=== PATIENT | female | born 1945 | race Caucasian/White ===

== ENCOUNTER 2017-09-01 23:19 | Emergency (ER) | payer BC ==
--- OUTSIDE RECORDS SUMMARY | 2017-09-01 23:33 | XMS REPORT ---
:1945 External Reference #:[id number] Author Organization [email or web address] Address [address] [address] Phone [phone] Care Team Providers Name Role Phone Saundra Bautista NP Care Team Information Operator Automated Process Unavailable Karoline Hammond MD Primary Care Physician Unavailable Payers Type Date Identification Numbers Payment Provider Subscriber Commercial Policy Number: [id number] BS [employer]ets Karina Maloney PayID: [id number] [address] [address] [place] [address] Medigap Part B Expires: 2016 Policy Number: [facility] Pphaven Maloney [id number] PayID: [id number] [address] [address] [place] [address] Medigap Part B Expires: 2013 Policy Number: [id number] BS Chrissy Maloney Group Name: Ppo [address] [address] PayID: [id number] [place] [address] Medigap Part B Effective: 2013 Policy Number: BS Chrissy Maloney [id number] Expires: 2016 PayID: [id number] [address] [address] [place] [address] Problems Date Description Provider Status Onset: 03/19/2015 Essential hypertension Saundra Bautista, N.Galo Active Onset: 06/02/2010 Migraine Karoline Hammond M.D. Active Onset: 06/02/2010 Hypothyroidism Karoline Hammond M.D. Active Onset: 12/09/2011 Hyperlipidemia Saundra Bautista N.Galo Active Onset: 12/08/2015 Degeneration of lumbar intervertebral Hemanth Dorantes M.D. 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 Works at [employer] Cigarette Use Never Smoked Cigarettes ETOH Use Currently consumes alcohol less than one per week ETOH Use Occasionally consumes alcohol Smoking Patient has never smoked Recreational Drug Use Denies Drug Use Exercise Type/Frequency Does not exercise Allergies, Adverse Reactions, Alerts Date Description Reaction Status Severity Comments 12/22/2009 No Known Drug Allergy active 03/19/2015 Certain Detergents active Medications Medication Date Status Form Strength Qnty SIG Indications Ordering Provider Losartan Potassium 07/26 Active Tablets 100mg 90tab 1 by mouth I10 s every day Varn, N.P. Trazodone HCL 04/04 Active Tablets 50mg 30tab Take One s Tablet By Varn, N.P. Mouth At Bedtime as Needed Voltaren 04/29 Active Gel 1% 300un Apply its [employer]ams [employer], SENIOR SALES COMPENSATION ANALYST Gel Two Times A Day To The Affected Area For 7 Days Amlodipine 03/23 Active Tablets 5mg 60tab Take One Karoline Besylate s Tablet By Cotton, Mouth M.D. Twice A Day Gabapentin 03/19 Active Capsules 100mg 90cap 1 by mouth Z48.89 s three Jose E, times a M.D. day Tramadol HCL 03/05 Active Tablets 50mg 90tab 1 tablet s three to Varn, N.P. four times daily as needed Cyclobenzaprine 11/09 Active Tablets 5mg 30tab Take One Saundra HCL s Tablet By Varn, N.P. Mouth At Bedtime as Needed For Back Pain Meloxicam 06/30 Active Tablets 7.5mg 60tab Take One M46.1 Saundra /2016 s Tablet By Varn, N.P. Mouth Twice A Day as Needed Atorvastatin 05/07 Active Tablets 20mg 30tab Take One E78.5 Saundra Calcium s Tablet By Varn, N.P. Mouth At Bedtime Levothyroxine 11/06 Active Tablets 75mcg 30tab Take One Saundra Sodium s Tablet By Varn, N.P. Mouth Every Day. Probiotic Active Capsules 1 by mouth Unknown Acidophilus qhs Vitamin C Active 1 po qd Unknown Vitamin D Active Tablets 1000Unit 2 tab each Unknown (Cholecalciferol) day by mouth Vicodin 03/16 Hx Tablets 5-300mg 20tab take 1 by s mouth Varn, N.P. - every 6 07/26 hours needed Tramadol HCL 11/09 Hx Tablets 50mg 90tab 1 tablet s three to Varn, N.P. - four times 03/05 daily needed Vitamin D3 10/06 Hx Capsules [id number] 8caps one by mouth once Varn, N.P. - weekly 12/05 Cheratussin ac 05/14 Hx Syrup 100-10mg/ 120ml 2 J20.9 5ML teaspoons Varn, N.P. - by mouth 06/30 every hours as needed Azithromycin 05/14 Hx Tablets 250mg 6tabs two tabs J20.9 day one, Varn, N.P. - one daily 05/24 till Cephalexin 04/15 Hx Tablets 500mg 21tab one three L04.0 s times Varn, N.P. - daily for 04/22 7 Robituss ac 07/16 Hx Liquid 120cc 1 - 2 tsp 465.9 q 4 hrs Varn, N.P. - prn cough 08/30 Azithromycin 07/16 Hx Tablets 250mg 6tabs two tabs 465.9 day one, Varn, N.P. - one daily 07/22 till Vicodin 07/11 Hx Tablets 5-300mg 20tab take 1 po 922.1 s bid prn Varn, N.P. - pain 07/15 Metaxalone 06/21 Hx Tablets 800mg 30tab take 1 724.5 s tablet 3 Varn, N.P. - times a 05/07 day needed Losartan Potassium 06/21 Hx Tablets 100mg 30tab Take One s Tablet By Varn, N.P. - Mouth 07/26 ( not taking ) Losartan Potassium 11/07 Hx Tablets 50mg 30tab Take One s Tablet By Varn, N.P. - Mouth 06/21 Ramipril 05/12 Hx Capsules 5mg 30cap 1 po qd 401.1 s Varn, N.P. - 11/07 Metaxalone 01/06 Hx Tablets 800mg 30tab take 1 724.5 s tablet 3 Varn, N.P. - times a 01/16 day needed Hydrocodone/Acetam 01/06 Hx Tablets 5-325mg 30tab 1 tablet 724.5 s every 4 - Varn, N.P. - 6 hours as 12/01 needed for pain Hydrochlorothiazid 12/26 Hx Tablets 25mg 90tab 1 po qd 401.1 Saundra s Varn, N.P. - 06/15 Zithromax Z-Diego 08/19 Hx Tablets 250mg 1Pack two po initially Cotton, - then one M.D. 08/29 po daily Robitussin ac 08/19 Hx Solution 120cc 1 to 2 tsp every 4 Cotton, - hours as M.D. 08/29 needed for cough Cipro 06/02 Hx Tablets 250mg 10tab 1 tablet 599.0 s bid for 5 Cotton, - days M.D. 06/08 Vicodin 04/01 Hx Tablets 5-500mg 30tab 1-2 by Luisa s mouth Lucille, - every 4-6 M.D., FACP 08/19 hours and needed for pain Flexeril 04/01 Hx Tablets 5mg 30tab 1 tablet Liusa s three Lucille, - times a M.D., FACP 06/02 day needed Verapamil HCL 09/07 Hx Tablets 40mg 1 Tablet Daily Rossy Hammond M.D. 04/01 Imitrex 09/07 Hx Kit 6mg 1 Injection - Onset Of 11/13 Headache, epeat 1/2 Hour Later If Needed Levothyroxine 09/07 Hx Tablets 75mcg 90tab 1 by mouth s once daily Rossy Hammond M.D. 11/06 Nabumetone 09/07 Hx Tablets 500mg 90tab Take 2 To s 3 Tablets Varn, N.P. - By Mouth 06/30 Once Daily as Needed Dilaudid Hx Tablets 2mg 200ta 1 Every 6 Other /0000 bs Hours as Ordering - Needed For Provider 12/01 Headache If Imitrex Does Not Work Acetaminophen Hx Capsules 500mg Unknown /0000 - 05/07 Coq-10 Hx Capsules 200mg 1 po qd Unknown /0000 - 06/30 Acetaminophen Hx Tablets 500mg 2 tablets Unknown /0000 by mouth - every 6 07/18 hours needed for pain/fever Oxycodone-Acetamin Hx Tablets 5-325mg 1 po tid Unknown ophen /0000 prn - 04/21 Diazepam Hx Tablets 2mg 1 po hs Unknown /0000 prn - 04/21 Neurontin Hx Capsules 300mg 1 in am Unknown /0000 and 2 in - pm 12/07 Lyrica 00 Hx Capsules 75mg 2 hs Unknown /0000 - 03/05 Medications Administered in Office Medication Date Status Form Strength Qnty SIG Indications Ordering Provider Inj, Administered Injection Jose S. Regadenoson, 015 DO Artie 0.1 MG FACC Inj, Administered Injection Qutaybeh S. Regadenoson, 015 Maghaydah, 0.1 MG M.D. Technetium TC Administered Injection Jose S. 99M 015 Alva, DO Tetrofosmin, FACC Per Unit Dose Up To 40 Millicuries Technetium TC Administered Injection Qutaybeh S. 99M 015 Maghaydah, Tetrofosmin, M.D. Per Unit Dose Up To 40 Millicuries Technetium TC Administered Injection Qutaybeh S. 99M 015 Maghaydah, Tetrofosmin, M.D. Per Unit Dose Up To 40 Millicuries Immunizations CPT Code Status Date Vaccine Lot # [id number] Given 02/19/2015 Influenza Virus Vaccine, Quadrivalent, Split, Preservative Free 95298 Given 05/07/2014 Pneumococcal Conjugate Vaccine 13 Valent For [id number] Intramuscular Use 45977 Given 12/01/2012 Pneumonia Vaccine [id number] 23001 Given 11/19/2011 Zoster (Zostavax) [id number] 32352 Given 02/16/2010 Influenza Virus 3Yrs & Over 54068 Given 04/10/2009 Influenza Virus Vaccine, Pandemic Formulation 38335 Given 04/10/2009 Administration Swine Flu Shot 71572 Given 01/30/2009 Flu Vac (History By Patient> 79075 Given 02/23/2008 Influenza Virus 3Yrs & Over Vital Signs Date Vital Result Comment 08/23/2017 Weight 111.00 lb Heart Rate 72 /min BP Systolic 130 mmHg BP Diastolic 66 mmHg Body Temperature 98.2 F O2 % BldC Oximetry 97 % 07/26/2017 Weight 111.00 lb Heart Rate 90 /min BP Systolic 160 mmHg BP Diastolic 76 mmHg Body Temperature 98.7 F O2 % BldC Oximetry 97 % 12/01/2016 Weight 117.25 lb Heart Rate 75 /min BP Systolic 138 mmHg BP Diastolic 70 mmHg Body Temperature 98.0 F O2 % BldC Oximetry 95 % 11/04/2016 Height 60 inches Weight 115.75 lb Heart Rate 86 /min BP Systolic 150 mmHg BP Diastolic 80 mmHg Body Temperature 97.1 F O2 % BldC Oximetry 98 % BMI (Body Mass Index) 22.6 kg/m2 05/03/2016 Height 59.5 inches 4'11.50" Weight 131.00 lb BP Systolic Sitting 140 mmHg BP Diastolic Sitting 80 mmHg Pain Level 1 BMI (Body Mass Index) 26.0 kg/m2 04/29/2016 Height 59.5 inches 4'11.50" Weight 131.00 lb Heart Rate 85 /min BP Systolic 128 mmHg BP Diastolic 70 mmHg Body Temperature 98.8 F O2 % BldC Oximetry 98 % BMI (Body Mass Index) 26.0 kg/m2 04/09/2016 Weight 132.00 lb with shoes Heart Rate 90 /min BP Systolic Sitting 152 mmHg BP Diastolic Sitting 94 mmHg O2 % BldC Oximetry 98 % 04/05/2016 Height 59.5 inches 4'11.50" Weight 136.00 lb Heart Rate 82 /min BP Systolic Sitting 150 mmHg BP Diastolic Sitting 90 mmHg Pain Level 2 BMI (Body Mass Index) 27.0 kg/m2 03/19/2016 Height 59.5 inches 4'11.50" Weight 136.00 lb Heart Rate 98 /min BP Systolic Sitting 220 mmHg BP Diastolic Sitting 100 mmHg Pain Level 6 BMI (Body Mass Index) 27.0 kg/m2 03/05/2016 Weight 136.00 lb Heart Rate 82 /min BP Systolic Sitting 152 mmHg BP Diastolic Sitting 84 mmHg Respiratory Rate 15 /min Body Temperature 98.6 F O2 % BldC Oximetry 98 % 02/25/2016 Height 59.5 inches 4'11.50" Weight 139.00 lb Heart Rate 78 /min BP Systolic Sitting 130 mmHg BP Diastolic Sitting 80 mmHg Pain Level 1 BMI (Body Mass Index) 27.6 kg/m2 01/28/2016 Height 59.5 inches 4'11.50" Weight 139.00 lb Heart Rate 86 /min BP Systolic Sitting 138 mmHg BP Diastolic Sitting 88 mmHg Body Temperature 99.3 F Pain Level 1 BMI (Body Mass Index) 27.6 kg/m2 12/29/2015 Height 59.5 inches 4'11.50" Weight 139.00 lb Heart Rate 70 /min BP Systolic Sitting 124 mmHg BP Diastolic Sitting 70 mmHg Pain Level 3 BMI (Body Mass Index) 27.6 kg/m2 12/08/2015 Height 59.5 inches 4'11.50" Weight 139.00 lb Heart Rate 62 /min BP Systolic Sitting 130 mmHg BP Diastolic Sitting 80 mmHg Pain Level 1 BMI (Body Mass Index) 27.6 kg/m2 10/08/2015 Height 59.5 inches 4'11.50" Weight 141.00 lb Heart Rate 74 /min BP Systolic Sitting 126 mmHg BP Diastolic Sitting 66 mmHg Body Temperature 98.5 F O2 % BldC Oximetry 99 % BMI (Body Mass Index) 28.0 kg/m2 06/30/2015 Weight 146.00 lb Heart Rate 74 /min BP Systolic Sitting 142 mmHg BP Diastolic Sitting 88 mmHg Body Temperature 98.3 F Pain Level 10 R hip 05/14/2015 Weight 148.00 lb Heart Rate 89 /min BP Systolic Sitting 149 mmHg BP Diastolic Sitting 82 mmHg Body Temperature 99.0 F O2 % BldC Oximetry 98 % 04/15/2015 Height 61 inches 5'1" Weight 148.00 lb Heart Rate 76 /min BP Systolic Sitting 126 mmHg BP Diastolic Sitting 78 mmHg Respiratory Rate 14 /min Body Temperature 99.1 F O2 % BldC Oximetry 98 % BMI (Body Mass Index) 28.0 kg/m2 03/19/2015 Height 61 inches 5'1" Weight 145.50 lb Heart Rate 76 /min BP Systolic Sitting 152 mmHg BP Diastolic Sitting 80 mmHg BP Systolic Recheck 140 mmHg BP Diastolic Recheck 78 mmHg Respiratory Rate 15 /min Body Temperature 98.1 F Pain Level 4 O2 % BldC Oximetry 95 % BMI (Body Mass Index) 27.5 kg/m2 11/13/2014 Height 61 inches 5'1" Weight 146.00 lb Heart Rate 63 /min BP Systolic 125 mmHg BP Diastolic 73 mmHg Body Temperature 97.2 F BMI (Body Mass Index) 27.6 kg/m2 08/30/2014 Weight 147.00 lb Heart Rate 79 /min BP Systolic Sitting 154 mmHg BP Diastolic Sitting 74 mmHg Body Temperature 98.1 F 07/16/2014 Weight 147.00 lb Heart Rate 84 /min BP Systolic Sitting 140 mmHg BP Diastolic Sitting 80 mmHg Body Temperature 97.7 F O2 % BldC Oximetry 96 % 05/07/2014 Height 61 inches 5'1" Weight 146.00 lb Heart Rate 74 /min BP Systolic 118 mmHg BP Diastolic 64 mmHg Body Temperature 98.7 F BMI (Body Mass Index) 27.6 kg/m2 07/24/2013 Weight 150.00 lb Heart Rate 78 /min BP Systolic Sitting 126 mmHg BP Diastolic Sitting 84 mmHg Respiratory Rate 15 /min Body Temperature 97.6 F 07/11/2013 Weight 146.00 lb Heart Rate 78 /min BP Systolic Sitting 138 mmHg BP Diastolic Sitting 82 mmHg Respiratory Rate 16 /min 06/21/2013 Weight 146.50 lb Heart Rate 84 /min BP Systolic 160 mmHg BP Diastolic 94 mmHg 12/01/2012 Height 60.5 inches 5'0.50" Weight 144.00 lb Heart Rate 70 /min BP Systolic Sitting 130 mmHg BP Diastolic Sitting 80 mmHg BMI (Body Mass Index) 27.7 kg/m2 06/15/2012 Height 60 inches 5'0" Weight 148.50 lb Heart Rate 76 /min BP Systolic Sitting 132 mmHg BP Diastolic Sitting 78 mmHg BMI (Body Mass Index) 29.0 kg/m2 05/12/2012 Height 60 inches 5'0" Weight 147.00 lb Heart Rate 72 /min BP Systolic Sitting 128 mmHg BP Diastolic Sitting 74 mmHg BP Systolic Recheck 138 mmHg BP Diastolic Recheck 88 mmHg BMI (Body Mass Index) 28.7 kg/m2 01/07/2012 Height 60 inches 5'0" Weight 142.75 lb Heart Rate 76 /min BP Systolic Sitting 120 mmHg BP Diastolic Sitting 78 mmHg BMI (Body Mass Index) 27.9 kg/m2 12/27/2011 Height 60 inches 5'0" Weight 143.00 lb BP Systolic Sitting 128 mmHg BP Diastolic Sitting 80 mmHg BP Systolic Recheck 138 mmHg BP Diastolic Recheck 92 mmHg BMI (Body Mass Index) 27.9 kg/m2 11/19/2011 Height 60 inches 5'0" Weight 145.00 lb Heart Rate 68 /min BP Systolic Sitting 142 mmHg BP Diastolic Sitting 78 mmHg BMI (Body Mass Index) 28.3 kg/m2 11/06/2010 Height 60 inches 5'0" Weight 144.00 lb Heart Rate 75 /min BP Systolic Sitting 124 mmHg BP Diastolic Sitting 82 mmHg BMI (Body Mass Index) 28.1 kg/m2 08/19/2010 Heart Rate 76 /min BP Systolic 144 mmHg BP Diastolic 82 mmHg Body Temperature 98.3 F 06/02/2010 Weight 152.00 lb Heart Rate 60 /min BP Systolic 130 mmHg BP Diastolic 78 mmHg 04/01/2010 Heart Rate 72 /min BP Systolic 154 mmHg BP Diastolic 90 mmHg Body Temperature 98.4 F 12/22/2009 Weight 151.50 lb Heart Rate 64 /min BP Systolic 122 mmHg BP Diastolic 78 mmHg Results Test Date Test Result H/L Range Note Laboratory test 12/08/2016 Blood Urea Nitrogen 11 mg/dL 6-24 1 finding BUN Creatinine 12/08/2016 Creatinine 0.82 mg/dL 0.51-0.95 Egfr Non- 69.1 >60 Egfr 88.9 >60 2 Laboratory test finding 11/04/2016 TSH (Thyroid Stim Horm) 0.43 mcIU/mL 0.34-5.60 Lipid Profile 10/30/2016 Triglycerides 73 mg/dL 3 (Trig/Chol/HDL) Cholesterol 142 mg/dL 4 HDL Cholesterol 53.6 mg/dL 5 LDL Cholesterol 74 mg/dL 6 Comp Metabolic Panel 10/30/2016 Sodium 138 mmol/L 133-145 Potassium 4.2 mmol/L 3.5-5.0 Chloride 104 mmol/L 101-111 Co2 Carbon Dioxide 28 mmol/L 22-32 Anion Gap 6 mmol/L 2-11 Glucose 89 mg/dL 70-100 Blood Urea Nitrogen 12 mg/dL 6-24 Creatinine 0.71 mg/dL 0.51-0.95 BUN/Creatinine Ratio 16.9 8-20 Calcium 10.0 mg/dL 8.6-10.3 Total Protein 6.9 g/dL 6.4-8.9 Albumin 4.6 g/dL 3.2-5.2 Globulin 2.3 g/dL 2-4 Albumin/Globulin Ratio 2.0 1-3 Total Bilirubin 0.50 mg/dL 0.2-1.0 Alkaline Phosphatase 86 U/L 34-104 Alt 22 U/L 7-52 Ast 20 U/L 13-39 Egfr Non- 81.6 >60 Egfr 105.0 >60 7 Basic Metabolic Panel 01/13/2016 Sodium 141 mmol/L 133-145 Potassium 3.8 mmol/L 3.5-5.0 Chloride 106 mmol/L 101-111 Co2 Carbon Dioxide 30 mmol/L 22-32 Anion Gap 5 mmol/L 2-11 Glucose 86 mg/dL 70-100 Blood Urea Nitrogen 16 mg/dL 6-24 Creatinine 0.71 mg/dL 0.51-0.95 BUN/Creatinine Ratio 22.5 High 8-20 Calcium 9.5 mg/dL 8.6-10.3 Egfr Non- 81.9 >60 Egfr 105.3 >60 8 CBC No Diff 01/13/2016 White Blood Count 5.2 10^3/uL 3.5-10.8 Red Blood Count 4.45 10^6/uL 4.0-5.4 Hemoglobin 13.4 g/dL 12.0-16.0 Hematocrit 40 % 35-47 Mean Corpuscular Volume 90 fL 80-97 Mean Corpuscular Hemoglobin 30 pg 27-31 Mean Corpuscular HGB Conc 34 g/dL 31-36 Red Cell Distribution Width 12 % 10.5-15 Platelet Count 216 10^3/uL 150-450 Mean Platelet Volume 8 um3 7.4-10.4 Laboratory test finding 12/05/2015 Vitamin D Total 25(Oh) 44.7 ng/mL 30- 50 9 Creatinine 11/18/2015 Creatinine 0.78 mg/dL 0.51-0.95 Egfr Non- 73.4 >60 Egfr 94.5 >60 10 Laboratory test finding 11/18/2015 Blood Urea Nitrogen BUN 17 mg/dL 6-24 11 Comp Metabolic Panel 10/06/2015 Sodium 140 mmol/L 133-145 Potassium 4.1 mmol/L 3.5-5.0 Chloride 105 mmol/L 101-111 Co2 Carbon Dioxide 30 mmol/L 22-32 Anion Gap 5 mmol/L 2-11 Glucose 82 mg/dL 70-100 Blood Urea Nitrogen 22 mg/dL 6-24 Creatinine 0.75 mg/dL 0.51-0.95 BUN/Creatinine Ratio 29.3 High 8-20 Calcium 9.5 mg/dL 8.6-10.3 Total Protein 6.4 g/dL 6.4-8.9 Albumin 4.2 g/dL 3.2-5.2 Globulin 2.2 g/dL 2-4 Albumin/Globulin Ratio 1.9 1-3 Total Bilirubin 0.70 mg/dL 0.2-1.0 Alkaline Phosphatase 86 U/L 34-104 Alt 21 U/L 7-52 Ast 19 U/L 13-39 Egfr Non- 76.8 >60 Egfr 98.8 >60 12 Lipid Profile (Trig/Chol/HDL) 10/06/2015 Triglycerides 83 mg/dL 13 Cholesterol 148 mg/dL 14 HDL Cholesterol 58.0 mg/dL 15 LDL Cholesterol 73 mg/dL 16 Laboratory test finding 10/06/2015 TSH (Thyroid Stim Horm) 0.41 ?IU/mL 0.34-5.60 17 Vitamin D Total 25(Oh) 16.9 ng/mL Low 30-50 18 C Reactive Protein < 1.00 mg/L < 5.00 19 Comp Metabolic Panel 03/19/2015 Sodium 140 mmol/L 133-145 Potassium 3.7 mmol/L 3.5-5.0 Chloride 105 mmol/L 101-111 Co2 Carbon Dioxide 31 mmol/L 22-32 Anion Gap 4 mmol/L 2-11 Glucose 86 mg/dL 70-100 Blood Urea Nitrogen 12 mg/dL 6-24 Creatinine 0.69 mg/dL 0.51-0.95 BUN/Creatinine Ratio 17.4 8-20 Calcium 9.5 mg/dL 8.6-10.3 Total Protein 6.4 g/dL 6.4-8.9 Albumin 4.2 g/dL 3.2-5.2 Globulin 2.2 g/dL 2-4 Albumin/Globulin Ratio 1.9 1-3 Total Bilirubin 0.60 mg/dL 0.2-1.0 Alkaline Phosphatase 87 U/L 34-104 Alt 27 U/L 7-52 Ast 23 U/L 13-39 Egfr Non- 84.6 >60 Egfr 108.8 >60 20 CBC Auto Diff 03/19/2015 White Blood Count 5.0 10^3/uL 4.8-10.8 Red Blood Count 4.42 10^6/uL 4.0-5.4 Hemoglobin 13.5 g/dL 12.0-16.0 Hematocrit 42 % 35-47 Mean Corpuscular Volume 95 fL 80-97 Mean Corpuscular Hemoglobin 31 pg 27-31 Mean Corpuscular HGB Conc 32 g/dL 31-36 Red Cell Distribution Width 13 % 10.5-15 Platelet Count 260 10^3/uL 150-450 Mean Platelet Volume 7 um3 Low 7.4-10.4 Abs Neutrophils 2.7 10^3/uL 1.5-7.7 Abs Lymphocytes 1.6 10^3/uL 1.0-4.8 Abs Monocytes 0.4 10^3/uL 0-0.8 Abs Eosinophils 0.1 10^3/uL 0-0.6 Abs Basophils 0.1 10^3/uL 0-0.2 Abs Nucleated RBC 0 10^3/uL Granulocyte % 54.8 % 38-83 Lymphocyte % 32.5 % 25-47 Monocyte % 8.5 % 1-9 Eosinophil % 3.0 % 0-6 Basophil % 1.2 % 0-2 Nucleated Red Blood Cells % 0.1 Liver Function Panel 07/09/2014 Total Protein 6.9 g/dL 6.4-8.9 Albumin 4.4 g/dL 3.2-5.2 Globulin 2.5 g/dL 2-4 Albumin/Globulin Ratio 1.8 1-3 Total Bilirubin 0.60 mg/dL 0.2-1.0 Direct Bilirubin 0.10 mg/dL 0.03-0.18 Indirect Bilirubin 0.5 mg/dL 0.3-1.0 Alkaline Phosphatase 79 U/L 34-104 Alt 23 U/L 7-52 Ast 20 U/L 13-39 Lipid Profile (Trig/Chol/HDL) 07/09/2014 Triglycerides 84 mg/dL 21 Cholesterol 154 mg/dL 22 HDL Cholesterol 58.6 mg/dL 23 LDL Cholesterol 79 mg/dL 24 Comp Metabolic Panel 05/01/2014 Sodium 139 mmol/L 133-145 Potassium 4.2 mmol/L 3.5-5.0 Chloride 104 mmol/L 101-111 Co2 Carbon Dioxide 30 mmol/L 22-32 Anion Gap 5 mmol/L 2-11 Glucose 82 mg/dL 70-100 Blood Urea Nitrogen 20 mg/dL 6-24 Creatinine 0.83 mg/dL 0.51-0.95 BUN/Creatinine Ratio 24.1 High 8-20 Calcium 9.6 mg/dL 8.6-10.3 Total Protein 6.7 g/dL 6.4-8.9 Albumin 4.1 g/dL 3.2-5.2 Globulin 2.6 g/dL 2-4 Albumin/Globulin Ratio 1.6 1-3 Total Bilirubin 0.50 mg/dL 0.2-1.0 Alkaline Phosphatase 104 U/L 34-104 Alt 16 U/L 7-52 Ast 11 U/L Low 13-39 Egfr Non- 68.6 >60 Egfr 88.2 >60 25 Laboratory test finding 05/01/2014 TSH (Thyroid Stimulating 1.80 IU/mL 0.34-5.60 Horm) Lipid Profile 05/01/2014 Triglycerides 80 mg/dL 26 (Trig/Chol/HDL) Cholesterol 263 mg/dL 27 HDL Cholesterol 64.2 mg/dL 28 LDL Cholesterol 183 mg/dL 29 Surgical Pathology 08/06/2013 S RUN DATE: <SEE NOTE> C. Difficile Toxin 08/06/2013 C. difficile (SEE NOTE) 31 Amplified Dna Amplified Dna Laboratory test 07/18/2013 Lactic Acid 0.6 mmol/L 0.5-2.2 finding CBC Auto Diff 07/18/2013 White Blood Count 13.8 10^3/uL High 4.8-10.8 Red Blood Count 4.78 10^6/uL 4.0-5.4 Hemoglobin 14.9 g/dL 12.0-16.0 Hematocrit 44 % 35-47 Mean Corpuscular Volume 92 fL 80-97 Mean Corpuscular Hemoglobin 31 pg 27-31 Mean Corpuscular HGB Conc 34 g/dL 31-36 Red Cell Distribution Width 13 % 10.5-15 Platelet Count 277 10^3/uL 150-450 Mean Platelet Volume 7 um3 Low 7.4-10.4 Abs Neutrophils 10.4 10^3/uL High 1.5-7.7 Abs Lymphocytes 2.2 10^3/uL 1.0-4.8 Abs Monocytes 1.0 10^3/uL High 0-0.8 Abs Eosinophils 0.2 10^3/uL 0-0.6 Abs Basophils 0 10^3/uL 0-0.2 Abs Nucleated RBC 0 10^3/uL Granulocyte % 75.5 % 38-83 Lymphocyte % 15.7 % Low 25-47 Monocyte % 7.3 % 1-9 Eosinophil % 1.2 % 0-6 Basophil % 0.3 % 0-2 Nucleated Red Blood Cells % 0 Inr/Protime 07/18/2013 Inr 0.85 0.85-1.06 Laboratory test finding 07/18/2013 Activated Partial 31.1 seconds 24.0- 36.1 Thrombo Time Stool For Blood 07/18/2013 Stool Occult Blood (SEE NOTE) 32 Urinalysis 07/18/2013 Urine Color Yellow Urine Appearance Clear Urine Specific [place] 1.028 1.010-1.030 Urine Esterase Negative Negative Urine Nitrate Negative Negative Urine Urobilinogen Negative E.U./dL Negative Urine Protein Negative mg/dL Negative Urine pH 5.0 5-9 Urine Blood Negative Negative Urine Ketones Negative mg/dL Negative Urine Bilirubin Negative Negative Urine Glucose Negative mg/dL Negative Comp Metabolic Panel 07/18/2013 Sodium 139 mmol/L 133-145 Potassium 3.7 mmol/L 3.7-5.6 Chloride 105 mmol/L 101-111 Co2 Carbon Dioxide 26 mmol/L 22-32 Anion Gap 8 mmol/L 2-11 Glucose 94 mg/dL 70-100 Blood Urea Nitrogen 13 mg/dL 6-24 Creatinine 0.77 mg/dL 0.51-0.95 BUN/Creatinine Ratio 16.9 8-20 Calcium 9.6 mg/dL 8.6-10.3 Total Protein 6.6 g/dL 6.4-8.9 Albumin 4.2 g/dL 3.2-5.2 Globulin 2.4 g/dL 2-4 Albumin/Globulin Ratio 1.8 1-3 Total Bilirubin 0.40 mg/dL 0.2-1.0 Alkaline Phosphatase 128 U/L High 34-104 Alt 30 U/L 7-52 Ast 21 U/L 13-39 Egfr Non- 75.0 >60 Egfr 96.5 >60 33 Laboratory test finding 07/18/2013 C Reactive Protein < 1.00 mg/L 34 B Type Natriuretic Peptide 37 pg/mL 35 Type & Screen 07/18/2013 Patient Blood Type O Positive Antibody Screen NEGATIVE Laboratory test 12/27/2012 TSH (Thyroid Stimulating 2.33 miu/mL 0.34- 5.60 36 finding Horm) Lipid Profile 12/27/2012 Triglycerides 79 mg/dL 40-200 (Trig/Chol/HDL) Cholesterol 227 mg/dL High Less than 200 HDL Cholesterol 58 mg/dL 40-60 37 Cholesterol/HDL Ratio 3.9 Average 1-4.44 LDL Cholesterol 153.2 High Less Than 100 38 Comp Metabolic Panel 12/27/2012 Sodium 138 mmol/L 133-145 Potassium 3.9 mmol/L 3.5-5.0 Chloride 103 mmol/L 101-111 Co2 Carbon Dioxide 28.0 mmol/L 22-32 Anion Gap 7.0 mmol/L 2-11 Glucose 89 mg/dL 70-100 Blood Urea Nitrogen 11 mg/dL 6-24 Creatinine 0.70 mg/dL 0.50-1.40 BUN/Creatinine Ratio 15.7 8-20 Calcium 10.0 mg/dL High 8.1-9.9 Total Protein 6.4 g/dL 6.2-8.1 Albumin 4.1 g/dL 3.2-5.2 Globulin 2.3 g/dL 2-4 Albumin/Globulin Ratio 1.8 1-3 Total Bilirubin 1.1 mg/dL 0.4-1.5 Alkaline Phosphatase 98 U/L 30-110 Alt 20 U/L 14-54 Ast 19 U/L 12-42 Egfr Non- 84.0 >60 Egfr 108.0 >60 39 CBC With Manual Diff 12/27/2012 White Blood Count 4.8 10^3/uL 4.8-10.8 Red Blood Count 4.68 10^6/uL 4.0-5.4 Hemoglobin 14.2 g/dL 12.0-16.0 Hematocrit 44 % 35-47 Mean Corpuscular Volume 95 fL 80-97 Mean Corpuscular Hemoglobin 30 pg 27-31 Mean Corpuscular HGB Conc 32 g/dL 31-36 Red Cell Distribution Width 13 % 10.5-15 Platelet Count 294 10^3/uL 150-450 Mean Platelet Volume 8 um3 7.4-10.4 Abs Neutrophils 2.3 10^3/uL 1.5-7.7 Abs Lymphocytes 1.9 10^3/uL 1.0-4.8 Abs Monocytes 0.4 10^3/uL 0-0.8 Abs Eosinophils 0.1 10^3/uL 0-0.6 Abs Basophils 0.1 10^3/uL 0-0.2 Abs Nucleated RBC 0 10^3/uL Neutrophil % 52 % 38-83 Lymphocytes % 42 % 25-47 Monocytes % 5 % 0-13 Eosinophils % 1 % 0-6 RBC Morphology Normal Normal Lipid Profile (Trig/Chol/HDL) 05/09/2012 Triglycerides 151 mg/dL 40-200 Cholesterol 322 mg/dL High Less than 200 HDL Cholesterol 61 mg/dL High 40-60 40 Cholesterol/HDL Ratio 5.3 Average High 1-4.44 LDL Cholesterol 230.8 mg/dL High Less Than 100 41 Vitamin D 1,25 And 12/07/2011 Vitamin D, 1,25 Dihydroxy 51 pg/mL - 42 Vitamin D,2 Vitamin D, 25 Hydroxy 12/07/2011 25-Hydroxy Vitamin D2 <4.0 ng/mL () 25-Hydroxy Vitamin D3 41 ng/mL () 25-Hydroxy Vitamin D Total 41 ng/mL () 43 Comp Metabolic Panel 12/07/2011 Sodium 138 mmol/L 135-145 Potassium 3.9 mmol/L 3.5-5.0 Chloride 106 mmol/L 101-111 Co2 (Carbon Dioxide) 28.0 mmol/L 22-32 Anion Gap 4.0 mmol/L 2-11 44 Glucose 86 mg/dL 70-100 BUN 17 mg/dL 6-24 Creatinine 0.7 mg/dL 0.50-1.40 One Over Creatinine 1.42 BUN/Creatinine Ratio 24.3 High 8-20 Calcium 9.4 mg/dL 8.1-9.9 Total Protein 6.6 GM/DL 6.2-8.1 Albumin 3.9 GM/DL 3.2-5.2 Globulin 2.7 GM/DL 2-4 Albumin/Globulin Ratio 1.4 1-3 Bilirubin Total 0.9 mg/dL 0.4-1.5 45 Alkaline Phosphatase 98 U/L 30-110 Alt (SGPT) 24 U/L 14-54 Ast (Sgot) 21 U/L 12-42 eGFR Non- 84.2 > 60 eGFR 108.3 > 60 46 Lipid Profile (Trig/Chol/HDL) 12/07/2011 Triglyceride 117 mg/dL 40-200 Cholesterol 243 mg/dL High Less Than 200 47 High Density Lipoprotein 51 mg/dL 40-60 48 Cholesterol/HDL Ratio 4.76 AVERAGE High 1-4.44 Low Density Lipoprotein 169 mg/dL High Less Than 100 49 Laboratory test finding 12/07/2011 TSH 2.27 MIU/ML 0.34-5.60 Laboratory test finding 01/06/2011 Thyroxine Free 1.25 ng/dL High 0.61- 1.24 TSH 0.90 MIU/ML 0.34-5.60 CBC With Manual Diff 11/09/2010 White Blood Count 4.8 CUMM 4.8-10.8 Red Cell Count 4.59 CUMM 4.2-5.4 Hemoglobin 13.9 g/dL 12.0-16.0 Hematocrit 42 % 35-47 Mean Corpuscular Volume 92 um3 79-97 Mean Corpuscular Hemoglob 30 pg 27-31 Mean Corpuscular HGB Cone 33 g/dL 32-36 Redcell Distribution WDTH 14 % 10.5-15 Platelet Count 241 CUMM 150-450 Mean Platelet Volume 8.0 um3 7.4-10.4 Polysegmented Neutrophil 53 % 38-83 Lymphocyte 27 % 25-47 Monocyte 13 % 0-13 Eosinophil 3 % 0-6 Basophil 2 % 0-2 Atypical Lymph 2 % 0-6 Absolute Neutrophil Count 2.5 Anisocytosis SLIGHT Laboratory test 11/06/2010 Cytology <SEE 50 finding NOTE> Urine Culture 06/02/2010 Urine Culture NF1 51 & Sensitivi Sensitivi Bacterial 06/02/2010 Bacterial Vaginosis Bacterial Vagino <SEE 52 Vaginosis Smear Smear NOTE> Wet Prep 06/02/2010 Wet Prep NONE SEEN 53 Laboratory test 12/17/2009 C Reactive Protein 0.4 mg/L < 54 finding High Sensit 7.48 Lipid Profile 12/17/2009 Triglyceride 100 mg/dL 40-200 (Trig/Chol/HDL) Cholesterol 215 mg/dL High Less Than 200 55 High Density Lipoprotein 43 mg/dL 40-60 56 Cholesterol/HDL Ratio 5.00 AVERAGE High 1-4.44 Low Density Lipoprotein 152 mg/dL High Less Than 100 57 1 Copy Result to: RENUKA BAUTISTA ([id number]) [id number] 2 Because ethnic data is not always readily available, this report includes an eGFR for both -Americans and non- Americans. The National Kidney Disease Education Program (NKDEP) does not endorse the use of the MDRD equation for patients that are not between the ages of 18 and 70, are , have extremes of body size, muscle mass, or nutritional status, or are non- or non-. According to the National Kidney Foundation, irrespective of diagnosis, the stage of the disease is based on the level of kidney function: Stage Description GFR(mL/min/1.73 m(2)) 1 Kidney damage with normal or decreased GFR 90 2 Kidney damage with mild decrease in GFR 60-89 3 Moderate decrease in GFR 30-59 4 Severe decrease in GFR 15-29 5 Kidney failure <15 (or dialysis) 3 Desirable <150 Borderline high 150-199 High 200-499 Very High >500 4 Desirable <200 Borderline high 200-239 High >239 5 Low <40 Desirable: 40-60 High: >60 6 Desirable: <100 mg/dL Near Optimal: 100-129 mg/dL Borderline High: 130-159 mg/dL High: 160-189 mg/dL Very High: >189 mg/dL 7 Because ethnic data is not always readily available, this report includes an eGFR for both -Americans and non- Americans. The National Kidney Disease Education Program (NKDEP) does not endorse the use of the MDRD equation for patients that are not between the ages of 18 and 70, are , have extremes of body size, muscle mass, or nutritional status, or are non- or non-. According to the National Kidney Foundation, irrespective of diagnosis, the stage of the disease is based on the level of kidney function: Stage Description GFR(mL/min/1.73 m(2)) 1 Kidney damage with normal or decreased GFR 90 2 Kidney damage with mild decrease in GFR 60-89 3 Moderate decrease in GFR 30-59 4 Severe decrease in GFR 15-29 5 Kidney failure <15 (or dialysis) 8 Because ethnic data is not always readily available, this report includes an eGFR for both -Americans and non- Americans. The National Kidney Disease Education Program (NKDEP) does not endorse the use of the MDRD equation for patients that are not between the ages of 18 and 70, are , have extremes of body size, muscle mass, or nutritional status, or are non- or non-. According to the National Kidney Foundation, irrespective of diagnosis, the stage of the disease is based on the level of kidney function: Stage Description GFR(mL/min/1.73 m(2)) 1 Kidney damage with normal or decreased GFR 90 2 Kidney damage with mild decrease in GFR 60-89 3 Moderate decrease in GFR 30-59 4 Severe decrease in GFR 15-29 5 Kidney failure <15 (or dialysis) 9 [id number] Copy Result to: RENUKA BAUTISTA ([id number]) 10 Because ethnic data is not always readily available, this report includes an eGFR for both -Americans and non- Americans. The National Kidney Disease Education Program (NKDEP) does not endorse the use of the MDRD equation for patients that are not between the ages of 18 and 70, are , have extremes of body size, muscle mass, or nutritional status, or are non- or non-. According to the National Kidney Foundation, irrespective of diagnosis, the stage of the disease is based on the level of kidney function: Stage Description GFR(mL/min/1.73 m(2)) 1 Kidney damage with normal or decreased GFR 90 2 Kidney damage with mild decrease in GFR 60-89 3 Moderate decrease in GFR 30-59 4 Severe decrease in GFR 15-29 5 Kidney failure <15 (or dialysis) 11 [facility] [id number] Copy Result to: RENUKA BAUTISTA ([id number]) 12 Because ethnic data is not always readily available, this report includes an eGFR for both -Americans and non- Americans. The National Kidney Disease Education Program (NKDEP) does not endorse the use of the MDRD equation for patients that are not between the ages of 18 and 70, are , have extremes of body size, muscle mass, or nutritional status, or are non- or non-. According to the National Kidney Foundation, irrespective of diagnosis, the stage of the disease is based on the level of kidney function: Stage Description GFR(mL/min/1.73 m(2)) 1 Kidney damage with normal or decreased GFR 90 2 Kidney damage with mild decrease in GFR 60-89 3 Moderate decrease in GFR 30-59 4 Severe decrease in GFR 15-29 5 Kidney failure <15 (or dialysis) 13 Desirable <150 Borderline high 150-199 High 200-499 Very High >500 14 Desirable <200 Borderline high 200-239 High >239 15 Low <40 Desirable: 40-60 High: >60 16 Desirable: <100 mg/dL Near Optimal: 100-129 mg/dL Borderline High: 130-159 mg/dL High: 160-189 mg/dL Very High: >189 mg/dL 17 Copy Result to: RENUKA BAUTISTA ([id number]) [id number] Copy Result to: RENUKA BAUTISTA ([id number]) [id number] Acute inflammation: >10.00 20 Because ethnic data is not always readily available, this report includes an eGFR for both -Americans and non- Americans. The National Kidney Disease Education Program (NKDEP) does not endorse the use of the MDRD equation for patients that are not between the ages of 18 and 70, are , have extremes of body size, muscle mass, or nutritional status, or are non- or non-. According to the National Kidney Foundation, irrespective of diagnosis, the stage of the disease is based on the level of kidney function: Stage Description GFR(mL/min/1.73 m(2)) 1 Kidney damage with normal or decreased GFR 90 2 Kidney damage with mild decrease in GFR 60-89 3 Moderate decrease in GFR 30-59 4 Severe decrease in GFR 15-29 5 Kidney failure <15 (or dialysis) 21 Desirable <150 Borderline high 150-199 High 200-499 Very High >500 22 Desirable <200 Borderline high 200-239 High >239 23 Low <40 Desirable: 40-60 High: >60 24 Desirable <100 Near Optimal 100-129 Borderline high 130-159 High 160-189 Very High >189 25 Because ethnic data is not always readily available, this report includes an eGFR for both -Americans and non- Americans. The National Kidney Disease Education Program (NKDEP) does not endorse the use of the MDRD equation for patients that are not between the ages of 18 and 70, are , have extremes of body size, muscle mass, or nutritional status, or are non- or non-. According to the National Kidney Foundation, irrespective of diagnosis, the stage of the disease is based on the level of kidney function: Stage Description GFR(mL/min/1.73 m(2)) 1 Kidney damage with normal or decreased GFR 90 2 Kidney damage with mild decrease in GFR 60-89 3 Moderate decrease in GFR 30-59 4 Severe decrease in GFR 15-29 5 Kidney failure <15 (or dialysis) 26 Desirable <150 Borderline high 150-199 High 200-499 Very High >500 27 Desirable <200 Borderline high 200-239 High >239 28 Low <40 Desirable: 40-60 High: >60 29 Desirable <100 Near Optimal 100-129 Borderline high 130-159 High 160-189 Very High >189 30 RUN DATE: 08/07/13 [facility] LAB LIVE PAGE 1 RUN TIME: 1520 [address] [place], [place] [address] Specimen Inquiry Name: KARINA MALONEY : [address]: Jordi Downs MD Acct: [id number] Unit: [id number] AGE: 68 Location: ENDO Re08/06/13 SEX: F Status: REG REF SPEC: [id number] IVA: 08/06/13- SUBM DR: Jordi Downs MD REQ: [id number] RECD: 08/06/13-1213 STATUS: YVONNE SALAZAR DR: Saundra Bautista SENIOR SALES COMPENSATION ANALYST _ ORDERED: LEVEL FINAL DIAGNOSIS Colon, rule out colitis, biopsies: A. Large intestinal mucosa with mild chronic active colitis (see comment). B. No crypt abscesses, granulomas or dysplasia identified. COMMENTS: The findings are indicative of a active inflammatory process with some degree of chronicity as evidenced by reparative changes. This may represent a subacute inflammatory process though insipient chronic inflammatory bowel disease cannot be excluded. Specific features of ischemic colitis are not seen though a recuperating lesion cannot be ruled. CLINICAL HISTORY History of ischemic colitis six weeks ago. Status post antibiotics. Screening colonoscopy to cecum. Humphries-colitis biopsied. ? C-diff POST-OPERATIVE DIAGNOSIS Screening colonoscopy to cecum - pancolitis biopsied. ? C. diff GROSS DESCRIPTION The specimen is received in formalin labeled Karina AlexEstuardo Maloney, Biopsy to Rule Out Colitis and consists of a 1.0 x 0.6 x 0.2 cm. aggregate of multiple, regan-pink, elongate portions of soft tissue. Submitted entirely, one cassette. Signed (signature on file) Umair Phillips MD 1520 END OF REPORT * ML=Testing performed at Main Lab DEPARTMENT OF PATHOLOGY, [facility] [employer] [place], [place] [address] Umair Phillips M.D. Director [facility] Permit #[id number] RUN DATE: 08/06/13 [facility] LAB LIVE PAGE 1 RUN TIME: 2913 [facility] [employer] [place] [address] Specimen Inquiry Name: KARINA MALONEY : [address]: Jordi Downs MD Acct: [id number] Unit: [id number] AGE: 68 Location: ENDO Re08/06/13 SEX: F Status: REG REF SPEC: [id number] IVA: 08/06/13-1104 [facility] DR: Jordi Downs MD REQ: [id number] RECD: 08/06/13 STATUS: MELISSA SALAZAR DR: Saundra Bautista SENIOR SALES COMPENSATION ANALYST _ SOURCE: STOOL [facility]: ORDERED: C. diff Amp DNA COMMENTS: Verbal to OSEI RICKY by [id number] at 1418 on 08/06/13. Results read back accurately. Procedure Result Verified Site C. difficile Amplified DNA Final 08/06/13- 1418 ML Organism 1 POS: C. DIFFICILE DETECTED Assay tests for toxigenic C. difficile with Pathogen Locus (PALOC) TEST LIMITATIONS: Assay does not distinguish between viable and nonviable organisms. Test results are to be used in conjunction with information available from the patient clinical evaluation and other diagnostic procedures. Two distinct groups have been identified that can harbor C. difficile asymptomatically at very high rates. Colonization at rates up to 50% and higher have been reported in infants and rates up to 32% in cystic fibrosis patients. END OF REPORT * ML=Testing performed at Main Lab DEPARTMENT OF PATHOLOGY, [facility] [employer] [place], [place] [address] Umair Phillips M.D. Director [facility] Permit #[id number] RUN DATE: 07/18/13 [facility] LAB LIVE PAGE 1 RUN TIME: 1441 [facility] [employer] [place] [address] Specimen Inquiry Name: HAIDERKARINA : [address]: Agapito Todd MD Acct: [id number] Unit: [id number] AGE: 68 Location: ED Re07/18/13 SEX: F Status: REG ER SPEC: [id number] IVA: 07/18/13-1307 [facility] DR: Agapito Todd MD REQ: [id number] RECD: 07/18/131960 STATUS: MELISSA SALAZAR DR: Saundra Bautista SENIOR SALES COMPENSATION ANALYST _ SOURCE: STOOL SPDESC: ORDERED: Hemoccult COMMENTS: SCANT TO NO VISIBLE MATERIAL ON SUBMITTED CARD Procedure Result Verified Site Stool Occult Blood Final 07/18/13- 1441 ML Stool Occult Blood Negative END OF REPORT * ML=Testing performed at Main Lab DEPARTMENT OF PATHOLOGY, [address] [place] [address] Umair Phillips M.D. Director [facility] Permit #[id number] 33 Because ethnic data is not always readily available, this report includes an eGFR for both -Americans and non- Americans. The National Kidney Disease Education Program (NKDEP) does not endorse the use of the MDRD equation for patients that are not between the ages of 18 and 70, are , have extremes of body size, muscle mass, or nutritional status, or are non- or non-. According to the National Kidney Foundation, irrespective of diagnosis, the stage of the disease is based on the level of kidney function: Stage Description GFR(mL/min/1.73 m(2)) 1 Kidney damage with normal or decreased GFR 90 2 Kidney damage with mild decrease in GFR 60-89 3 Moderate decrease in GFR 30-59 4 Severe decrease in GFR 15-29 5 Kidney failure <15 (or dialysis) 34 Low risk: <1.0 mg/L Average risk: 1.0-3.0 mg/L High risk: >3.0 mg/L Acute inflammation: >10.0 mg/L 35 >100 to <200 pg/mL: likely compensated congestive heart failure (CHF) 200 to 400 pg/mL: likely moderate CHF >400 pg/mL: likely moderate to severe CHF [place] [facility] 36 FASTING 12 HOUR Please get this done soon 37 HDL Interpretation: Undesirable: High Risk: Less than 40 mg/dL Desirable: Low Risk: Greater than 60 mg/dL 38 LDL Interpretation: Low Risk Optimal Level: LDL Less than 100 mg/dL Near or Above Optimal: LDL 100-129 mg/dL Borderline High Risk: LDL 130-159 mg/dL High Risk: LDL 160-189 mg/dL Very High Risk: LDL Greater than 189 mg/dL 39 Because ethnic data is not always readily available, this report includes an eGFR for both -Americans and non- Americans. The National Kidney Disease Education Program (NKDEP) does not endorse the use of the MDRD equation for patients that are not between the ages of 18 and 70, are , have extremes of body size, muscle mass, or nutritional status, or are non- or non-. According to the National Kidney Foundation, irrespective of diagnosis, the stage of the disease is based on the level of kidney function: Stage Description GFR(mL/min/1.73 m(2)) 1 Kidney damage with normal or decreased GFR 90 2 Kidney damage with mild decrease in GFR 60-89 3 Moderate decrease in GFR 30-59 4 Severe decrease in GFR 15-29 5 Kidney failure <15 (or dialysis) 40 HDL Interpretation: Undesirable: High Risk: Less than 40 MG/DL Desirable: Low Risk: Greater than 60 MG/DL 41 LDL Interpretation: Low Risk Optimal Level: LDL Less than 100 MG/DL Near or Above Optimal: LDL 100-129 MG/DL Borderline High Risk: LDL 130-159 MG/DL High Risk: LDL 160-189 MG/DL Very High Risk: LDL Greater than 189 MG/DL 42 Test Performed by: [address] [address] Teacher Aide Clerical: Ricky Garibay III, M.D. 43 -- REFERENCE VALUE -- 25-HYDROXY D TOTAL (D2+D3) Optimum levels in the normal population are 25-80 Test Performed by: [facility] [address] [address] Teacher Aide Clerical: Ricky Garibay III, M.D. 44 Anion gap measurement may be of limited value in the presence of any alkalosis, especially in a combined acid base disorder. . 45 A metabolite of Naproxen, O-desmethylnaproxen, has been shown to interfere with the Jendrassik-Dorothy method for measuring total bilirubin. Samples from patients who have taken Naproxen have shown spurious elevation in total bilirubin levels. 46 Because ethnic data is not always readily available, this report includes an eGFR for both -Americans and non- Americans. The National Kidney Disease Education Program (NKDEP) does not endorse the use of the MDRD equation for patients that are not between the ages of 18 and 70, are , have extremes of body size, muscle mass, or nutritional status, or are non- or non-. According to the National Kidney Foundation, irrespective of diagnosis, the stage of the disease is based on the level of kidney function: Stage Description GFR(mL/min/1.73 m(2)) 1 Kidney damage with normal or decreased GFR 90 2 Kidney damage with mild decrease in GFR 60-89 3 Moderate decrease in GFR 30-59 4 Severe decrease in GFR 15-29 5 Kidney failure <15 (or dialysis) 47 CHOLESTEROL INTERPRETATION: Desirable: Less than 200 MG/DL Borderline-High Risk: 200-239 MG/DL High-Risk: 240 MG/DL and over 48 HDL INTERPRETATION: Undesirable: High Risk: Less than 40 MG/DL Desirable: Low Risk: Greater than 60 MG/DL 49 LDL INTERPRETATION: Low Risk Optimal Level: LDL Less than 100 MG/DL Near or Above Optimal: LDL 100-129 MG/DL Borderline High Risk: LDL 130-159 MG/DL High Risk: LDL 160-189 MG/DL Very High Risk: LDL Greater than 189 MG/DL 50 ---- RUN DATE: 11/10/10 [facility] NMI LIVE PAGE 1 RUN TIME: 1147 Specimen Inquiry RUN USER: INTERFACE -- Name: KARINA MALONEY Status: REG REF Re11/06/10 Age/Sex: 65/F Unit#: [id number] Location: [facility] : [birth year] -- Specimen: [id number] Spec Date: 11/06/[address]: Saundra morrison [facility] Spec Type: CYTOLOGY Received: 11/09/10-918 Copies to: SOURCE ECTOCERVICAL/ENDOCERVICAL Thin Prep with Reflex HPV Test PATIENT INFORMATION ACTUAL COLLECTION DATE: 11/06/10 ? No POST MENOPAUSAL? Yes PREVIOUS ABNORMAL PAP SMEARS No ADEQUACY OF SPECIMEN Satisfactory for evaluation * Transformation zone component cannot be definitely identified due to prese nce * of atrophy or other hormonal changes. * DIAGNOSIS NEGATIVE FOR INTRAEPITHELIAL LESION OR MALIGNANCY * This Pap test was evaluated with the assistance of the ThinPrep Pap Test Imaging System. The Pap Smear is a screening test designed to aid in the detection of premalign ant and malignant conditions of the uterine cervix. It is not a diagnostic procedure a nd should not be used as the sole means of detecting cervical cancer. Both false- positiv e and false-negative reports do occur. Depending on your risk status, a Pap smear kingsley uld be obtained and evaluated every one to three years. Initial evaluation performed by [facility] 11/10/10 Final Interpretation electronically signed by: [facility] 11/10/10 1147 -- -- DEPARTMENT OF PATHOLOGY, [address] [place] [address] [facility] Permit #[id number] Umair Phillips M.D. Director Gomez Wood M.D. Men'S Golf Coach Dir lakia -- 51 SPECIMEN CONTAINS NORMAL URETHRAL OR PERINEAL JANE AND DOES NOT SUGGEST URINARY TRACT INFECTION 52 Bacterial Vaginosis Not Likely None Few None MODERATE 53 ABSENT MODERATE (1 TO 4/HPF) ABSENT 54 Less Than 1.0......Low Risk of Cardiovascular Disease 1.0-3.0............Medium Risk (<2 Fold Increase) Greater Than 3.0...High Risk (Approximately 2-Fold Increase) The above guidelines are referenced in "Markers of Inflammation and Cardiovascular Disease: Application to Clinical and Public Health Practice." A Statement for Health Professionals from the Centers for Disease Control and Prevention and the [place] [employer]. (Reference: Circulation 2003 107:499-511) SERUM LEVELS OF HIGH SENSITIVITY C-REACTIVE PROTEIN MEASURED BY THE [employer] LXi 725 SYSTEM SHOULD NOT BE INTERPRETTED ABSOLUTE EVIDENCE OF THE PRESENCE OR ABSENCE OF DISEASE. A HIGH SENSITIVITY CRP VALUE SHOULD BE USED IN CONJUNCTION WITH OTHER PERTINENT CLINICAL AND DIAGNOSTIC INFORMATION. 55 CHOLESTEROL INTERPRETATION: Desirable: Less than 200 MG/DL Borderline-High Risk: 200-239 MG/DL High-Risk: 240 MG/DL and over 56 HDL INTERPRETATION: Undesirable: High Risk: Less than 40 MG/DL Desirable: Low Risk: Greater than 60 MG/DL 57 LDL INTERPRETATION: Low Risk Optimal Level: LDL Less than 100 MG/DL Near or Above Optimal: LDL 100-129 MG/DL Borderline High Risk: LDL 130-159 MG/DL High Risk: LDL 160-189 MG/DL Very High Risk: LDL Greater than 189 MG/DL Procedures Date CPT Code Description Status 11/04/2016 Mammogram Completed 01/20/2016 76381 Laminotomy W/Decomp NRV RT,One Interspace,Lumbar Completed 01/20/2016 19019 Laminotomy W/Decomp NRV RT,One Interspace,Lumbar Completed 10/07/2015 Mammogram Completed 04/01/2015 22067 Stress Test Completed 04/01/2015 57466 Myocardial Perfusion Imaging Tomographic (Spect) Completed Multiple Studies 04/01/2015 08502 Myocardial Perfusion Imaging Tomographic (Spect) Completed Multiple Studies 03/28/2015 83744 ECHO Transthoracic, Real-Time 2D With Doppler And Color Completed Flow 03/19/2015 21099 EKG Tracing & Interpretation Completed 12/21/2013 Mammogram Completed 08/06/2013 Colonoscopy Completed 07/20/2013 Colonoscopy Completed 12/01/2012 Mammogram Completed 11/19/2011 Mammogram Completed 11/06/2010 Mammogram Completed 09/12/2009 Mammogram Completed 08/18/2009 03536 EKG Tracing & Interpretation Completed 09/19/2008 Bone Mineral Density Test Completed 02/26/2008 Mammogram Completed 08/29/2007 Mammogram Completed 07/19/2007 23807 EKG Tracing & Interpretation Completed 08/05/2006 Colonoscopy Completed Encounters Type Date Location Provider CPT E/M Dx Office Visit 08/23/2017 10:00a [facility] Internal Medicine Saundra Bautista, N.P. 93964 I10 - [place] Office Visit 07/26/2017 10:20a [facility] Saundra Bautista N.P. 15158 I10 - [place] Office Visit 12/01/2016 11:40a [facility] Saundra Bautista N.P. 57144 R22.1 - [place] M79.604 R60.0 Office Visit 11/04/2016 9:00a [facility] Medicine Saundra Bautista N.P. 45076 Z00.01 - [place] Z12.31 I10 E78.00 E03.9 M54.5 R22.1 Office Visit 05/03/2016 2:30p Neurosurgery Services Hemanth Dorantes 05076 M54.5 Of [facility] M.D. Office Visit 04/29/2016 2:40p [facility] [place] [address] M25.512 - [place] Office Visit 04/09/2016 8:40a [facility] Medicine Saundra Bautista 01001 I10 - [place] N.P. Office Visit 03/19/2016 10:00a Neurosurgery Services Hemanth Dorantes 29813 Z48.89 Of [facility] M.D. M79.604 Office Visit 03/05/2016 3:00p [facility] Saundra Bautista N.PEstuardo 44976 M79.661 - [place] M25.561 Office Visit 12/29/2015 3:30p Neurosurgery Services Hemanth Dorantes 94380 M51.25 Of [facility] M.D. Office Visit 12/08/2015 4:00p Neurosurgery Services Hemanth Dorantes 82936 M51.25 Of [facility] M.D. Office Visit 10/08/2015 9:20a [facility] Internal Medicine - Saundra Bautista, 23934 Z00.01 [place] N.P. I10 E03.9 E78.0 E55.9 Office Visit 06/30/2015 1:00p [facility] Internal Medicine Saundra Bautista, N.P. 23413 M46.1 - [place] Office Visit 05/14/2015 2:20p [facility] Internal [facility] Saundra Bautista, N.P. 86272 J20.9 - [place] Office Visit 04/15/2015 10:40a [facility] Medicine Saundra Bautista, N.P. 80796 L04.0 - [place] Office Visit 03/19/2015 8:40a [facility] Medicine Saundra Bautista, N.P. 55445 Z01.818 - [place] M54.5 I10 E03.9 J45.30 E78.0 R94.31 Office Visit 11/13/2014 9:00a [facility] Medicine Saundra Bautista, N.P. 83293 401.1 - [place] Office Visit 08/30/2014 11:20a [facility] [facility] Saundra Bautista, N.P. 62277 724.5 - [place] 719.44 737.30 720.2 Office Visit 07/16/2014 3:00p [facility] Saundra Bautista, N.P. 89809 465.9 - [place] V12.69 Office Visit 05/07/2014 9:20a [facility] Saundra Bautista, N.P. 14922 V70.0 - [place] V72.31 401.1 244.9 272.4 V03.82 Office Visit 07/24/2013 10:00a [facility] Saundra Bautista, N.P. 74996 009.3 [place] Office Visit 07/20/2013 11:14a [facility], Gayatri Cunningham, 29118 558.9 Hospitalists N.P. 244.9 401.9 Office Visit 07/19/2013 11:14a [facility], Gayatri Cunningham, 88540 558.9 Hospitalists N.P. 244.9 401.9 Office Visit 07/18/2013 11:11a [facility], Reagan Lindsey, 09690 558.9 Hospitalists N.P. 244.9 401.9 Office Visit 07/11/2013 10:00a [facility] Medicine Saundra Bautista, N.P. 68480 922.1 - [place] Office Visit 06/21/2013 8:40a [facility] Saundra Bautista, N.P. 06103 401.1 - [place] 724.5 Office Visit 12/01/2012 9:00a [facility] Saundra Bautista, N.P. 06582 V70.0 - [place] V72.31 V76.10 272.4 401.1 244.9 780.79 V03.82 Office Visit 06/15/2012 9:20a [facility] Saundra Bautista, N.P. 65098 401.1 - [place] 272.4 Office Visit 05/12/2012 10:00a [facility] Saundra Bautista, N.P. 79636 272.4 - [place] 401.1 Office Visit 01/07/2012 10:00a [facility] Saundra Bautista, N.P. 49996 724.5 - [place] Office Visit 12/27/2011 9:40a [facility] Saundra Bautista, N.P. 50508 401.1 - [place] 272.4 Office Visit 11/19/2011 1:00p [facility] Saundra Bautista, N.P. 11145 V70.0 - [place] 244.9 272.4 733.90 715.00 V04.89 796.2 Office Visit 11/06/2010 9:00a DO Not Use Saundra Lily, 96952 V72.31 Assistant Pressman-[place] N.P. 244.9 V76.2 Office Visit 08/19/2010 2:45p DO Not Use Saundra Lily, N.P. 79932 466.0 Assistant [facility]man[facility] Office Visit 06/02/2010 8:30a DO Not Use Karoline Hammond, 41841 599.0 [facility]-[place] M.D. Office Visit 04/01/2010 4:00p DO Not Use Saundra Bautista, N.P. 57480 720.2 Assistant [facility] Office Visit 12/22/2009 9:00a DO Not Use Karoline Cotton, 50575 272.0 Assistant Pressman-[place] M.D. 785.2 Office Visit 11/25/2009 9:15a DO Not Use Saundra Varn, 60631 466.0 Assistant Pressman-[place] N.P. Office Visit 09/08/2009 11:30a DO Not Use Karoline Cotton, 80970 272.0 Assistant Pressman-[place] M.D. Office Visit 08/18/2009 8:45a DO Not Use RadHarriet hayward, 53633 V72.31 Assistant Pressman-[place] M.D. 272.0 244.9 Office Visit 09/03/2008 3:30p DO Not Use Saundra Lily, 89307 789.04 Assistant Pressman-[place] N.P. 599.70 Office Visit 08/15/2008 1:15p DO Not Use RadHarriet hayward, 48221 V72.31 Assistant Pressman-[place] M.D. 244.9 Office Visit 10/23/2007 3:00p DO Not Use RadHarriet hayward, 98074 786.2 Assistant Pressman-[place] M.D. 493.90 Office Visit 10/02/2007 2:00p DO Not Use Assistant Pressman-[place] Saundra Bautista, 67376 466.0 N.P. 462 Office Visit 07/19/2007 9:30a DO Not Use RadHarriet hayward, 60306 V72.31 Assistant Pressman-[place] M.D. 272.0 Office Visit 02/21/2007 10:15a DO Not Use Saundra Varprince, 29898 599.0 Assistant Pressman-[place] N.P. Office Visit 08/29/2006 9:00a DO Not Use Harriet Mckay, 13802 786.2 Assistant Pressman-[place] M.D. Office Visit 06/22/2006 9:15a DO Not Use RadHarriet hayward, 05364 715.91 Assistant Pressman-[place] M.D. 724.6 733.90 272.0 Office Visit 05/11/2006 9:15a DO Not Use RadHarriet hayward, 56333 V72.31 Sandra Covarrubias 719.41 719.45 272.0 242.90 Office Visit 01/10/2006 12:00p DO Not Use Sandra Luisa Adkins 21440 346.90 Satish, [facility] Plan of Care Future Appointment(s):11/15/2017 8:40 am - Saundra Bautista N.Galo at [facility] - [place]21/03/2018 - Saundra Bautista N.Mindi.I10 Essential (primary) hypertensionComments:For your high blood pressure: Continue with your current medication. I would like you to continue to monitor your blood pressure at home. If you find your readings are consistently elevated over 140/90, please give the office a call.
[2017-09-02] MEDS ORDERED: predniSONE TAB* 20 MG PO ONE (00:24)
[2017-09-02] MEDS ORDERED: Ketorolac INJ* 60 MG/2 ML VIAL IM ONE (00:24)
[2017-09-02] MEDS ORDERED: HYDROmorphone INJ* 2 MG/ML CARPUJECT SYRINGE IM ONE (00:24)
[2017-09-02 01:06] VITALS: BP 143/73
--- NOTE | 2017-09-02 02:43 | ED ---
Arturo Rodríguez Gabriel, scribed for Gurdeep Kaufman MD on 09/02/17 at 0021 . Upper Extremity Pain - HPI Summary HPI Summary: This patient is a 72 year old F presenting to [facility] accompanied by her son with a chief complaint of intermittent pain from the back of her neck into her right shoulder and arm. Pt has had this pain since 08-30-17. The patient rates the pain 10/10 in severity. Symptoms alleviated by PT. Patient denies injury, weakness, and numbness. Pt sees pain management for chronic lower back and hip pain. She states the pain feels similar to the sciatica in her LE. - History of Current Complaint Chief Complaint: EDExtremityUpper Stated Complaint: RT ARM PAIN Time Seen by Provider: 09/02/17 00:14 Hx Obtained From: Patient Onset/Duration: Still Present Timing: Constant Severity Initially: Severe Severity Currently: Severe Pain Location: Shoulder, Arm, Other: - neck Associated Signs & Symptoms: Positive: Negative - trauma - Allergies/Home Medications Allergies/Adverse Reactions: Allergies Allergy/AdvReac Type Severity Reaction Status Date / Time No Known Allergies Allergy Verified 09/01/17 23:24 Home Medications: Home Medications Diclofenac Sodium [Voltaren] 100 gm TP DAILY PRN 09/02/17 [History Confirmed ] Trazodone HCl 50 mg PO BEDTIME PRN 09/02/17 [History Confirmed 09/02/17] PMH/Surg Hx/FS Hx/Imm Hx Endocrine/Hematology History: Reports: Hx Thyroid Disease Denies: Hx Diabetes Cardiovascular History: Reports: Hx Hypercholesterolemia, Hx Hypertension - CONTROL WITH MEDS Denies: Hx Congestive Heart Failure, Hx Pacemaker/ICD Respiratory History: Reports: Hx Chronic Bronchitis GI History: Reports: Hx Gastrointestinal Bleed, Other GI Disorders - PRESENT GI BLEED ABD PAIN History: Reports: Hx Kidney Stones Denies: Hx Renal Disease Musculoskeletal History: Reports: Hx Arthritis, Hx Back Problems, Hx Scoliosis, Other Musculoskeletal History - Right Hip Pain Sensory History: Reports: Hx Contacts or Glasses Denies: Hx Deafness, Hx Hearing Aid, Hx Hearing Problem Opthamlomology History: Reports: Hx Contacts or Glasses Neurological History: Reports: Hx Migraine Comment Only: Other Neuro Impairments/Disorders - PAIN CLINIC PATIENT Psychiatric History: Denies: Hx Panic Disorder - Cancer History Hx Chemotherapy: No Hx Radiation Therapy: No - Surgical History Surgery Procedure, Year, and Place: RIGHT BREAST ASPIRATIONS, R shoulder RTC [id number], BILATERAL Bunion removal X2 2000. BACK SURGERY LAMINECTOMY L4-L5 03/2015. 01/20/16 BACK SURGERY T12-L1, Thyoid radiation therapy Hx Anesthesia Reactions: No Infectious Disease History: No Infectious Disease History: Denies: Traveled Outside the [place] in Last 30 Days - Family History Known Family History: Positive: Cardiac Disease - Social History Lives: With Family Alcohol Use: None Substance Use Type: Reports: None Smoking Status (MU): Never Smoked Tobacco Have You Smoked in the Last Year: No Review of Systems Constitutional: Negative - trauma Negative: Fever Positive: Other - neck pain, right shoulder pain, right arm pain Negative: Weakness, Numbness All Other Systems Reviewed And Are Negative: Yes Physical Exam - Summary Physical Exam Summary: Appearance: Well appearing, no pain distress Skin: warm, dry, reflects adequate perfusion Head/face: normal Eyes: EOMI, LUCY ENT: normal Neck: supple, non-tender Respiratory: CTA, breath sounds present Cardiovascular: RRR, pulses symmetrical Abdomen: non-tender, soft Bowel Sounds: present Musculoskeletal: normal, strength/ROM intact, normal sensation, no palpable discomfort, no subjective weakness or numbness Neuro: normal, sensory motor intact, A&Ox3 Triage Information Reviewed: Yes Vital Signs On Initial Exam: Initial Vitals Temp Pulse Resp BP Pulse Ox 98.7 F 100 16 148/77 99 09/01/17 23:21 09/01/17 23:21 09/01/17 23:21 09/01/17 23:21 09/01/17 23:21 Vital Signs Reviewed: Yes Diagnostics - Vital Signs Vital Signs Temp Pulse Resp BP Pulse Ox 09/01/17 23:21 98.7 F 100 16 148/77 99 - Laboratory Lab Statement: Any lab studies that have been ordered have been reviewed, and results considered in the medical decision making process. Course/Dx - Course Course Of Treatment: pt with hx of chronic pain, sees pain mgmt. Hx of lumbar area disc disease -- today with apparent cervical level disc syndrome. No numbness or weakness. Tx here with some relief. Start steroid. F/U Pain mgmt and her spine surgeon. - Diagnoses Differential Diagnosis/HQI/PQRI: Positive: Bursitis, Strain, Sprain Provider Diagnoses: Cervical radiculopathy Discharge - Sign-Out/Discharge Documenting (check all that apply): Discharge - Discharge Plan Condition: Good Disposition: HOME Prescriptions: predniSONE TAB* [Deltasone TAB*] 50 mg PO DAILY #4 tab Patient Education Materials: Cervical Radiculopathy (ED) Forms: *Work Release Referrals: Hemanth Dorantes MD [Medical Doctor] - Saundra Bautista NP [Primary Care Provider] - Additional Instructions: Call in the morning for follow up. Follow up with your pain management team. Return with weakness/numbness, worse or other concerns. Ibuprofen may be taken - - but not at same time as steroid. EAT with both medications. - Billing Disposition and Condition Condition: GOOD Disposition: HOME The documentation as recorded by the Arturo newsome Gabriel accurately reflects the service I personally performed and the decisions made by me, Gurdeep Kaufman MD.
== END 2017-09-02 01:10 | disposition home or self-care (01) ==
LOC: ED 23:19
DX: M54.12 Radiculopathy, cervical region (principal); M79.601 Pain in right arm; M54.2 Cervicalgia; M25.511 Pain in right shoulder
CPT/HCPCS: 96372; 99282; J1170; J1885; J7512

== ENCOUNTER 2017-09-26 08:10 | Observation (INO) | payer BC ==
[~2017-09-26 08:10] MED LIST: Buffered Lidocaine 0.9% SYRIN* 5 ML/SYR SYRINGE INTRADERM ONE; Dexamethasone IV* 4 MG/ML 1 ML (4 MG) IV SLOW PU ONE; Famotidine TAB* 20 MG PO ONE
[2017-09-26] MEDS ORDERED: Dexamethasone IV* 4 MG/ML 1 ML (4 MG) ONE (08:18)
[2017-09-26] MEDS ORDERED: Buffered Lidocaine 0.9% SYRIN* 5 ML/SYR SYRINGE ONE (08:18)
[2017-09-26] MEDS ORDERED: Famotidine TAB* 20 MG ONE (08:18)
[2017-09-26] MEDS ORDERED: ceFAZolin 2 GM PREMIX (*) 2 GM/50 ML BAG IVPB ONE (08:51)
[2017-09-26] MEDS ORDERED: Atracurium* 10 MG/ML 10 ML VIAL ONE (09:10)
[2017-09-26] MEDS ORDERED: fentaNYL* 50 MCG/ML 5 ML VIAL (250 MCG VIAL) ONE (09:10)
[2017-09-26] MEDS ORDERED: Midazolam* 1 MG/ML 2 ML VIAL (2 MG) ONE (09:11)
[2017-09-26] MEDS ORDERED: EPHEDrine (Pressors)* 50 MG/ML VIAL ONE (09:13)
[2017-09-26] MEDS ORDERED: Propofol* 10 MG/ML 20 ML BTL IV PUSH ONE (09:14)
[2017-09-26] MEDS ORDERED: Ondansetron INJ* 2 MG/ML VIAL ONE (09:14)
[2017-09-26] MEDS ORDERED: Lidocain 1% EPI 1:100,000 * 30 ML MDV ONE (09:53)
[2017-09-26] MEDS ORDERED: Thrombin 5,000 UNITS* 1 APPLIC KIT - topical use - TOPICAL ONE (09:53)
[2017-09-26] MEDS ORDERED: Bacitracin IV* 50,000 UNITS INJ ONE (09:54)
[2017-09-26] MEDS ORDERED: Naloxone* 0.4 MG/ML 1 ML VIAL IV PRN (11:00)
[2017-09-26] MEDS ORDERED: DiMENhydriNATE IV* 50 MG/ML VIAL IV PUSH PRN (11:00)
[2017-09-26] MEDS ORDERED: Ondansetron INJ* 2 MG/ML VIAL IV PRN ×2 (11:00→12:17)
[2017-09-26] MEDS ORDERED: fentaNYL* 50 MCG/ML 2 ML VIAL (100 MCG VIAL) IV PRN (11:00)
[2017-09-26] MEDS ORDERED: HYDROmorphone INJ* 1 MG/ML CARPUJECT SYRINGE IV PRN (11:00)
[2017-09-26] MEDS ORDERED: Zolpidem TAB* 10 MG PO PRN (12:17)
[2017-09-26] MEDS ORDERED: Magnesium Hydroxide LIQ* 30 ML UDC PO PRN (12:17)
--- NOTE | 2017-09-26 12:27 | RAD ---
Indication: Anterior cervical discectomy and fusion. 2 views of the cervical spine are reviewed. Film #2 demonstrates localization of the C4-C5 disc interspace. IMPRESSION: Localization of the C4-C5 disc interspace.
[2017-09-26] MEDS ORDERED: fentaNYL* 50 MCG/ML 2 ML VIAL (100 MCG VIAL) ONE (12:55)
[2017-09-26] MEDS: Heparin VIAL(*) 5000 UNITS/ML VIAL (FIVE THOUSAND) SUBCUT SCH ×2 (14:35→21:59)
[2017-09-26] MEDS: Gabapentin CAP(*) 400 MG PO SCH ×2 (14:36→21:56)
[2017-09-26] MEDS: HYDROcodone/ACETAMIN 5-325 MG* 1 TAB PO PRN ×2 (17:46→21:56)
[2017-09-26] MEDS ORDERED: Atorvastatin* 20 MG TAB PO SCH (21:00)
[2017-09-26] MEDS: amLODIPine TAB* 5 MG PO SCH (21:57)
[2017-09-27] MEDS: HYDROcodone/ACETAMIN 5-325 MG* 1 TAB PO PRN ×2 (03:51→11:54)
[2017-09-27] MEDS: Heparin VIAL(*) 5000 UNITS/ML VIAL (FIVE THOUSAND) SUBCUT SCH (06:04)
[2017-09-27] MEDS: Gabapentin CAP(*) 400 MG PO SCH (08:34)
[2017-09-27] MEDS: amLODIPine TAB* 5 MG PO SCH (08:35)
[2017-09-27] MEDS ORDERED: Cholecalciferol TAB* 1000 UNITS PO SCH (09:00)
--- NOTE | 2017-09-27 09:56 | PN ---
Progress Note - Progress Note Date of Service: 09/27/17 SOAP: Subjective: [S/p ACD F C5-6, POD#1. Pre-op RUE pain resolved. ROM without pain improved. Right thumb numbness persistent. Swallowing well, liquids and food. Ambulating independently. Denies headache, nausea.] Objective: [ Vital Signs: Temp Pulse Resp BP Pulse Ox 98.5 F 81 16 134/64 99 09/27/17 07:34 09/27/17 07:34 09/27/17 08:37 09/27/17 07:34 09/27/17 07:34 General: Alert and no distress. Neuro: Motor intact. right thumb numbness. Extremities: Full ROM. Incision: Intact and without swelling or erythema.] Assessment: [Satisfactory post-op course. ] Plan: [1. Discharge home today. 2. Discharge instructions discussed with the patient.
[2017-09-27 12:26] VITALS: BP 119/57
--- NOTE | 2017-10-02 21:11 | OP ---
DATE OF OPERATION: 09/26/17 - ROOM #[id number] DATE OF : 49 SURGEON: Hemanth Dorantes MD ANESTHESIA: General. PRE-OP DIAGNOSIS: Herniated nucleus pulposus, C5-6 on the right. POST-OP DIAGNOSES: Herniated nucleus pulposus C5-6 on the right, cervical spondylosis C5-6. OPERATIVE PROCEDURE: Anterior cervical diskectomy and allograft fusion C5-6 with anterior instrumentation. DESCRIPTION OF PROCEDURE: After satisfactory general anesthesia was obtained, the patient's head was positioned on a horseshoe headrest with the neck slightly extended. An anterior cervical exposure was then fashioned over the C5- 6 level assisted with a wire web worker radiograph. This incision began at the midline and extended to the right side to a distance of 3 cm. This incision was infiltrated with 1% Xylocaine with epinephrine, after which it was turned down sharply to the level of the subcutaneous tissues. A superior and inferiorly based subcutaneous flap was then fashioned and the platysmal muscle divided along the direction of its fibers. Utilizing a combination of sharp and blunt dissection, a dissection plane was carried out between the sternocleidomastoid and strap muscles down to the anterior aspect of the spine. An additional x-ray was obtained verifying proper interspace localization after which the initial step in the procedure was placement of self -retaining retractors. Following this, an anterior osteophyte was removed at this level and anterior two-thirds of disk material was removed using a combination of [place] drill, angle curettes and pituitary pullers. The [place] distractor pins were then placed in the C5 and C6 vertebral bodies and gentle disk space distraction applied. At this point in the procedure, the operating microscope was brought into the field and the remainder of the procedure was done under microscopic visualization. Projecting back posteriorly was a significant spur primarily coming off the superior aspect of C6. This was decompressed utilizing the [place] drill and pituitary rongeurs as well as [place] rongeurs. In removing the osteophyte, a small opening was made in the dura by the 1-mm Kerrison rongeur. This was controlled with temporary Gelfoam. The dura was noted to be quite adherent to the spur throughout the exposure at this level. Ultimately, the spur was decompressed. Projecting out laterally were multiple fragments of extruded disk material which were removed without difficulty. It was felt that a satisfactory decompression had been achieved. The CSF leak was managed by placing a small piece of Gelfoam over the minute tear followed by DuraSeal. An 8-mm graft was then filled with bony matrix and slightly countersunk at this level. A Medtronic Zevo plate was selected to span from C5 to C6 and secured into position with self-drilling screws. A postconstruct x-ray was taken showing good graft and screw placement. The wound was then thoroughly irrigated after which the subcutaneous tissues were reapproximated with 3-0 Vicryl and the skin closed with Steri-Strips. The estimated blood was less than 50 cc and the final sponge , padding and needle counts were correct. The patient was taken to the recovery room, extubated and in stable condition. [id number]/[facility] #: [id number] KEVIN
--- NOTE | 2017-10-04 08:46 | DS ---
DISCHARGE SUMMARY: DATE OF ADMISSION: 09/26/17 DATE OF DISCHARGE: 09/27/17 ATTENDING SURGEON: Dr. Hemanth Dorantes* (dictated by TU Granados). DISCHARGE DIAGNOSES: 1. Herniated nucleus pulposus C5-6 on the right. 2. Hypertension. 3. Hypothyroidism. SPECIAL PROCEDURE: Anterior cervical diskectomy and fusion C5-6. HOSPITAL COURSE: This 72-year-old female was seen in the office with a right- sided cervical radiculopathy. MRI was obtained and symptoms were consistent with herniated disks at C5-6 to the right. She failed to improve with several weeks of conservative treatment and was unable to manage the pain and weakness in the right upper extremity. Surgical treatment was therefore discussed with the patient, she decided to proceed with this option. On the day of admission, she was taken to surgery where under general anesthesia , an anterior cervical diskectomy and fusion at C5-6 on the right operation was carried out. Postoperatively, she is feeling well. The right upper extremity symptoms were resolved. She was able to move the right upper extremity without pain. Pain was controlled with oral pain medication. She was eating soft foods and drinking liquids without difficulty. She was ambulating independently. She was voiding without difficulty. On the first postoperative day, she was discharged home to the care of her family. DISCHARGE INSTRUCTIONS: Including wound care and activity level were discussed with the patient. DISCHARGE MEDICATIONS: [place] 5/325 mg 1 to 2 tabs by mouth every 4 hours as needed for pain. FOLLOWUP: The patient will be seen in the office in approximately 2 weeks. TU GRANADOS [id number]/[facility] #: [id number] MTDD
== END 2017-09-27 11:50 | disposition home or self-care (01) ==
LOC: OR 08:10 → SSU 12:18
PROVIDERS: ADMIT Neurological Surgery; ATTEND Neurological Surgery
DX: M50.21 Other cervical disc displacement, high cervical region (principal); I10 Essential (primary) hypertension; E03.9 Hypothyroidism, unspecified
CPT/HCPCS: 72020; 96374; 96375; A9270-GY; C1713; C1776; G0378; J0690; J1100; J1644; J2250; J2405; J2704; J3010

== ENCOUNTER 2019-05-23 13:42 | Observation (INO) | payer BC ==
[2019-05-23 14:10] LABS: ABS Lymphocytes 1.4 10^3/ul (1.0-4.8); ABS Monocytes 0.8 10^3/ul (0-0.8); ABS Neutrophils 4.3 10^3/ul (1.5-7.7); Eosinophil % 0.3 %; Hematocrit 47 % (35-47); Hemoglobin 15.9 g/dL (12.0-16.0); Lymphocyte % 21.8 %; Mean Corpuscular HGB Conc 34 g/dL (31-36); Mean Corpuscular Hemoglobin 32 pg (27-31); Mean Corpuscular Volume 93 fL (80-97); Mean Platelet Volume 6.9 fL (7.4-10.4); Nucleated Red Blood Cells % 0.2; Platelet Count 312 10^3/uL (150-450); Red Blood Count 5.06 10^6 /uL (3.70-4.87); Red Cell Distribution Width 14 % (10-15); White Blood Count 6.6 10^3/uL (3.5-10.8)
[2019-05-23 14:28] LABS: Albumin 4.8 g/dL (3.2-5.2); Albumin/Globulin Ratio 1.5 (1-3); Calcium 10.7 mg/dL (8.6-10.3); EGFR African American 62.3 (>60); EGFR Non-African American 51.5 (>60); Globulin 3.3 g/dL (2-4); Potassium 3.9 mmol/L (3.5-5.0); Total Bilirubin 0.6 mg/dL (0.2-1.0); Total Protein 8.1 g/dL (6.4-8.9)
[2019-05-23 14:29] LABS: Troponin I 0.01 ng/mL (<0.03)
[2019-05-23] MEDS ORDERED: NS 0.9% 1000 ML** 2,000 ML IV ONE (14:42)
--- NOTE | 2019-05-23 14:59 | ED ---
Complex/Multi-Sys Presentation - HPI Summary HPI Summary: 74 y/o female presented to [facility] complaining of nausea which has been present since taking new medication (HCTZ) yesterday morning for her HTN. She has had 4 episodes of diarrhea as well and has not eaten in 2 days. She also confirms generalized weakness, diaphoresis, chills, a couple episodes of lightheadedness , rhinorrhea, bradypnea, labored breathing and a tingling sensation in her hands. Pt denies any erythema of eyes, sore throat, CP, SOB, cough, abdominal pain, vomiting, dysuria, hematuria, myalgia, edema, rash. Her worst symptoms occurred yesterday afternoon when she had no way to get comfortable. She is on Tramadol, Gabapentin, HTN medications, and thyroid medications. She has had 2 back, 2 shoulder, and 1 neck surgery and has chronic pain in her right ankle. She does not smoke or drink alcohol. - History Of Current Complaint Chief Complaint: EDGeneral Time Seen by Provider: 05/23/19 13:51 Hx Obtained From: Patient, Other: - friend Onset/Duration: Lasting Days, Still Present Timing: Constant Associated Signs And Symptoms: Positive: Dizziness - lightheaded episodes, Weakness - generalized, Nausea, Diarrhea, Back Pain - chronic, Decreased Oral Intake - 2 days since, Diaphoresis, Other - positive - diaphoresis, chills, a couple episodes of lightheadedness, rhinorrhea, bradypnea, labored breathing and a tingling feeling in her hands; negative - sore throat, erythema of eyes, myalgia, hematuria. Negative: SOB, Cough, Chest Pain, Edema, Vomiting, Abdominal Pain, Dysuria, Fever - Allergies/Home Medications Allergies/Adverse Reactions: Allergies Allergy/AdvReac Type Severity Reaction Status Date / Time No Known Allergies Allergy Verified 03/14/19 11:31 Home Medications: Home Medications Hydrochlorothiazide TAB* 05/23/19 [History] Potassium Chlor TAB* 05/23/19 [History] PMH/Surg Hx/FS Hx/Imm Hx Endocrine/Hematology History: Reports: Hx Thyroid Disease Denies: Hx Diabetes Cardiovascular History: Reports: Hx Hypercholesterolemia, Hx Hypertension - CONTROL WITH MEDS Denies: Hx Congestive Heart Failure, Hx Pacemaker/ICD Respiratory History: Reports: Hx Chronic Bronchitis GI History: Reports: Hx Gastrointestinal Bleed, Other GI Disorders - PRESENT GI BLEED ABD PAIN History: Reports: Hx Kidney Stones Denies: Hx Renal Disease Musculoskeletal History: Reports: Hx Arthritis, Hx Back Problems, Hx Scoliosis, Other Musculoskeletal History - Right Hip Pain Sensory History: Reports: Hx Contacts or Glasses Denies: Hx Deafness, Hx Hearing Aid, Hx Hearing Problem Opthamlomology History: Reports: Hx Contacts or Glasses Neurological History: Reports: Hx Migraine Comment Only: Other Neuro Impairments/Disorders - PAIN CLINIC PATIENT Psychiatric History: Denies: Hx Panic Disorder - Cancer History Hx Chemotherapy: No Hx Radiation Therapy: No - Surgical History Surgery Procedure, Year, and Place: RIGHT BREAST ASPIRATIONS, R shoulder RTC [id number], BILATERAL Bunion removal X2 2000. BACK SURGERY LAMINECTOMY L4-L5 03/2015. 01/20/16 BACK SURGERY T12-L1, Thryoid radiation therapy Hx Anesthesia Reactions: No Infectious Disease History: No Infectious Disease History: Denies: Traveled Outside the [place] in Last 30 Days - Family History Known Family History: Positive: Cardiac Disease - Social History Alcohol Use: None Substance Use Type: Reports: None Smoking Status (MU): Never Smoked Tobacco Have You Smoked in the Last Year: No Review of Systems Positive: Chills, Skin Diaphoresis. Negative: Fever Negative: Erythema Positive: Nasal Discharge. Negative: Sore Throat Negative: Chest Pain Respiratory: Other - positive - bradypnea, labored breathing Negative: Shortness Of Breath, Cough Positive: Diarrhea, Nausea. Negative: Abdominal Pain, Vomiting Negative: dysuria, hematuria Negative: Myalgia Negative: Rash Neurological: Other - positive - light-headedness; negative - dizziness Positive: Paresthesia - tingling in hands All Other Systems Reviewed And Are Negative: Yes Physical Exam - Summary Physical Exam Summary: Constitutional: Well-developed, Well-nourished, Alert. (-) Distressed, Mildly ill appearing Skin: Warm, Dry HENT: Normocephalic; Atraumatic Eyes: Conjunctiva normal Neck: Musculoskeletal ROM normal neck. (-) JVD, (-) Stridor, (-) Tracheal deviation Cardio: Rhythm regular, rate low 100s, Heart sounds normal; Intact distal pulses ; The pedal pulses are 2+ and symmetric. Radial pulses are 2+ and symmetric. (- ) Murmur Pulmonary/Chest wall: Effort normal. (-) Respiratory distress, (-) Wheezes, (-) Rales Abd: Soft, (-) tenderness, (-) Distension, (-) Guarding, (-) Rebound Musculoskeletal: (-) Edema Lymph: (-) Cervical adenopathy Neuro: Alert, Oriented x3 Psych: Mood and affect Normal Triage Information Reviewed: Yes Vital Signs On Initial Exam: Initial Vitals Pulse BP Pulse Ox 99 139/84 94 05/23/19 13:51 05/23/19 13:51 05/23/19 13:51 Vital Signs Reviewed: Yes Procedures - Sedation Patient Received Moderate/Deep Sedation with Procedure: No Diagnostics - Vital Signs Vital Signs Temp Pulse Resp BP Pulse Ox 05/23/19 14:00 101 19 98 05/23/19 13:54 98.7 F 100 16 139/84 100 05/23/19 13:52 102 14 98 05/23/19 13:51 99 139/84 94 - Laboratory Lab Results: Lab Results 05/23/19 05/23/19 05/23/19 Range/Units 14:00 14:00 14:00 WBC 6.6 (3.5-10.8) 10^3/uL RBC 5.06 H (3.70-4.87) 10^6 /uL Hgb 15.9 (12.0-16.0) g/dL Hct 47 (35-47) % MCV 93 (80-97) fL MCH 32 H (27-31) pg MCHC 34 (31-36) g/dL RDW 14 (10-15) % Plt Count 312 (150-450) 10^3/uL MPV 6.9 L (7.4-10.4) fL Neut % (Auto) 65.7 % Lymph % (Auto) 21.8 % [place] % (Auto) 11.8 % Eos % (Auto) 0.3 % Baso % (Auto) 0.4 % Absolute Neuts (auto) 4.3 (1.5-7.7) 10^3/ul Absolute Lymphs (auto) 1.4 (1.0-4.8) 10^3/ul Absolute Monos (auto) 0.8 (0-0.8) 10^3/ul Absolute Eos (auto) 0.0 (0-0.6) 10^3/ul Absolute Basos (auto) 0.0 (0-0.2) 10^3/ul Absolute Nucleated RBC 0.0 10^3/ul Nucleated RBC % 0.2 Sodium 139 (135-145) mmol/L Potassium 3.9 (3.5-5.0) mmol/L Chloride 100 L (101-111) mmol/L Carbon Dioxide 22 (22-32) mmol/L Anion Gap 17 H (2-11) mmol/L BUN 22 (6-24) mg/dL Creatinine 1.05 H (0.51-0.95) mg/dL Est GFR ( Amer) 62.3 (>60) Est GFR (Non-Af Amer) 51.5 (>60) BUN/Creatinine Ratio 21.0 H (8-20) Glucose 105 H (70-100) mg/dL Lactic Acid 1.7 (0.5-2.0) mmol/L Calcium 10.7 H (8.6-10.3) mg/dL Total Bilirubin 0.60 (0.2-1.0) mg/dL AST 26 (13-39) U/L ALT 28 (7-52) U/L Alkaline Phosphatase 94 (34-104) U/L Troponin I 0.01 (<0.03) ng/mL Total Protein 8.1 (6.4-8.9) g/dL Albumin 4.8 (3.2-5.2) g/dL Globulin 3.3 (2-4) g/dL Albumin/Globulin Ratio 1.5 (1-3) Result Diagrams: 05/23/19 14:00 05/23/19 14:00 Lab Statement: Any lab studies that have been ordered have been reviewed, and results considered in the medical decision making process. - EKG 1402 Cardiac Rate: Tachycardia Summary of EKG Findings: Sinus tachycardia at 101bpm. No STEMI. This EKG was reviewed and interpreted by the ED physician. Re-Evaluation - Re-Evaluation First Eval Re-Evaluation Time: 19:47 Comment: Pt was still tachycardic and continues to have diarrhea. She is dehydrated from a new diuretic and ED physician will request admission from the hospitalist. She felt unsteady on her feet. Complex Multi-Symp Course/Dx Course Of Treatment: 74 y/o female presented to [facility] complaining of nausea which has been present since taking new medication (HCTZ) yesterday morning for her HTN. She has had 4 episodes of diarrhea as well and has not eaten in 2 days. She also confirms generalized weakness, diaphoresis, chills, a couple episodes of lightheadedness, rhinorrhea, bradypnea, labored breathing and a tingling sensation in her hands. Pt denies any erythema of eyes, sore throat, CP , SOB, cough, abdominal pain, vomiting, dysuria, hematuria, myalgia, edema, rash. Her worst symptoms occurred yesterday afternoon when she had no way to get comfortable. She is on Tramadol, Gabapentin, HTN medications, and thyroid medications. Exam noted pt was mildly ill appearing and HR was in low 100s. EKG showed sinus tachycardia at 101bpm. No STEMI. Bloodwork showed RBC, MCH, anion gap, creatinine, BUN/Creatinine ratio, glucose, Ca were high. MPV and CL were low. UA showed ketones. Pt was given 2L IV NaCl. Pt was still tachycardic and continues to have diarrhea. She is dehydrated from a new diuretic and ED physician will request admission from the hospitalist. She felt unsteady on her feet. 194 - Patient's case was discussed with Dr. Mendoza, Dr. Mendoza accepts the patient for admission. - Diagnoses Provider Diagnoses: Dehydration, Diarrhea - Physician Notifications Discussed Care Of Patient With: Jose Mendoza Time Discussed With Above Provider: 19:49 Instructed by Provider To: Other - The patient's case was discussed with Dr. Mendoza. After discussion, Dr. Mendoza will admit the patient. Discharge ED - Sign-Out/Discharge Documenting (check all that apply): Patient Departure - admit - Discharge Plan Condition: Stable Disposition: ADMITTED TO [facility] Referrals: Saundra Bautista NP [Primary Care Provider] - - Attestation Statements Document Initiated by Scribe: Yes Documenting Scribe: TITI SLADE Provider For Whom Gilaibjhonatan is Documenting (Include Credential): PETER ULLOA MD Scribe Attestation: TITI Rodríguez, scribed for PETER ULLOA MD on 05/23/19 at 2111. Status of Scribe Document: Ready
--- OUTSIDE RECORDS SUMMARY | 2019-05-23 15:29 | XMS REPORT | Continuity of Care Document ---
:1945 External Reference #:[id number] Author Name Saundra Bautista N.P. (transmitted by agent of provider Katarzyna Gerard) [address] [facility] [place] [address] Care Team Providers Name Role Phone Karoline Hammond MD - Internal Care Team Information Composition Floor Setter [phone] Medicine Harriet Mckay MD - Internal Care Team Information Composition Floor Setter Medicine Jose A Casanova MD - Family Medicine Care Team Information Composition Floor Setter [phone] Scott Casanova MD - Orthopaedic Care Team Information Composition Floor Setter Surgery Problems Active Problems Provider Date Essential hypertension Saundra Bautista N.P. Onset: 03/19/2015 Migraine Karoline Hammond M.D. Onset: 06/02/2010 Hypothyroidism Karoline Hammond M.D. Onset: 06/02/2010 Hyperlipidemia Saundra Bautista N.P. Onset: 12/09/2011 Degeneration of lumbar intervertebral disc Hemanth Dorantes M.D. Onset: 2015 Displacement of thoracic intervertebral disc Hemanth Dorantes M.D. Onset: 12/28 without myelopathy Low back pain Hemanth Dorantes M.D. Onset: 05/03/2016 Lumbar radiculopathy Hemanth Dorantes M.D. Onset: 03/27/2018 Displacement of cervical intervertebral disc Hemanth Dorantes M.D. Onset: 09/23 Brachial neuritis Hemanth Dorantes M.D. Onset: 09/05/2017 Social History Type Date Description Comments Sex Unknown Tobacco Use Start: Unknown Never Smoked Cigarettes ETOH Use Currently consumes less than one per alcohol week ETOH Use Occasionally consumes alcohol Tobacco Use Start: Unknown Patient has never smoked Recreational Drug Use Denies Drug Use Smoking Status Reviewed: 05/18/19 Patient has never smoked Exercise Type/Frequency Does not exercise Allergies, Adverse Reactions, Alerts Active Allergies Reaction Severity Comments Date No Known Drug Allergy 12/22/2009 Certain Detergents 03/19/2015 Medications Active Medications SIG Qnty Indications Ordering Date Provider Hydrochlorothiazide 1 by mouth 90tabs I10 Saundra Varn, 05/18/2019 25mg Tablets every day N.P. Shingrix To be injected 1units Z00.00 Saundra Varn, 11/16/2018 50mcg/0.5ML Suspension N.P. Rec Meloxicam Take One 60tabs Saundra Varn, 03/15/2018 7.5mg Tablets Tablet By N.P. Mouth Twice A Day as Needed Losartan Potassium Take One 90tabs I10 Saundra Varn, 07/26/2017 100mg Tablets Tablet By N.P. Mouth Every Day Trazodone HCL Take One 30tabs Saundra Varn, 04/04/2017 50mg Tablets Tablet By N.P. Mouth AT Bedtime as Needed Voltaren Apply 2 Grams 300units Delmar Ch NP 04/29/2016 1% Gel Of Gel Two Times A Day To The Affected Area For 7 Days Gabapentin 1 by mouth 90caps Z48.89 Hemanth Dorantes, 03/19/2016 100mg Capsules three times a M.D. day Tramadol HCL 1 tablet three 90tabs Saundra Varn, 03/05/2016 50mg Tablets to four times N.P. daily as needed Atorvastatin Calcium Take One 30tabs E78.5 Saundra Varn, 05/07/2014 20mg Tablets Tablet By N.P. Mouth AT Bedtime Levothyroxine Sodium take one 60tabs Saundra Varn, 11/06/2010 75mcg tablet by N.P. Tablets mouth 5 days weekly Probiotic Acidophilus 1 by mouth qhs Unknown Capsules Vitamin C 1 po qd Unknown Vitamin D 2 tab each day Unknown (Cholecalciferol) by mouth 1000Unit Tablets Medications Administered in Office Medication SIG Qnty Indications Ordering Provider Date Inj, Regadenoson, 0.1 MG Jose RufinoEstuardo Alva, DO [facility] 04/01/2015 Injection Inj, Regadenoson, 0.1 MG Qutaybeh S. Maghaydah, 04/01/2015 Injection M.D. Technetium TC 99M Jose SEstuardo Alva, DO [facility] 04/01/2015 Tetrofosmin, Per Unit Dose Up To 40 Millicuries Injection Technetium TC 99M Qutaybeh S. Maghaydah, 04/01/2015 Tetrofosmin, Per Unit Dose M.D. Up To 40 Millicuries Injection Technetium TC 99M Qutaybeh S. Maghaydah, 04/01/2015 Tetrofosmin, Per Unit Dose M.D. Up To 40 Millicuries Injection Immunizations CPT Code Status Date Vaccine Lot # [id number] Given 03/19/2019 Zoster (Shingles) Vaccine (HZV), Recombinant, Subunit, Adjuvanted [id number] Given 02/03/2018 Influenza Virus Vaccine, Quadrivalent, Split, Preservative Free 21600 Given 02/19/2015 Influenza Virus Vaccine, Quadrivalent, Split, Preservative Free 33489 Given 05/07/2014 Pneumococcal Conjugate Vaccine 13 Valent For [id number] Intramuscular Use 04425 Given 12/01/2012 Pneumonia Vaccine [id number] 89412 Given 11/19/2011 Zoster (Zostavax) [id number] 93451 Given 02/16/2010 Influenza Virus 3Yrs & Over 94385 Given 04/10/2009 Influenza Virus Vaccine, Pandemic Formulation 21724 Given 04/10/2009 Administration Swine Flu Shot 90239 Given 01/30/2009 Flu Vac (History By Patient> 48796 Given 02/23/2008 Influenza Virus 3Yrs & Over Vital Signs Date Vital Result Comment 05/18/2019 10:36am Height 58.25 inches 4'10.25" Weight 120.00 lb Heart Rate 86 /min BP Systolic Sitting 150 mmHg manual BP Diastolic Sitting 90 mmHg manual Body Temperature 97.7 F O2 % BldC Oximetry 98 % BMI (Body Mass Index) 24.9 kg/m2 11/16/2018 8:50am Height 58.25 inches 4'10.25" Weight 116.25 lb Heart Rate 78 /min BP Systolic 124 mmHg BP Diastolic 74 mmHg Body Temperature 97.2 F O2 % BldC Oximetry 98 % BMI (Body Mass Index) 24.1 kg/m2 Results Description No Information Available Procedures Date Code Description Status 11/17/2018 [id number] Mammogram Completed 11/15/2017 [id number] Mammogram Completed 11/04/2016 [id number] Mammogram Completed 10/07/2015 [id number] Mammogram Completed 12/21/2013 [id number] Mammogram Completed 08/06/2013 [id number] Colonoscopy Completed 07/20/2013 [id number] Colonoscopy Completed 12/01/2012 [id number] Mammogram Completed 11/19/2011 [id number] Mammogram Completed 11/06/2010 [id number] Mammogram Completed 09/12/2009 [id number] Mammogram Completed 09/19/2008 [id number] Bone Mineral Density Test Completed 02/26/2008 [id number] Mammogram Completed 08/29/2007 [id number] Mammogram Completed 08/05/2006 [id number] Colonoscopy Completed Medical Devices Description No Information Available Encounters Description No Information Available Assessments Date Code Description Provider 05/18/2019 I10 Essential (primary) hypertension Saundra Bautista, N.PEstuardo Plan of Treatment Future Appointment(s):11/21/2019 8:40 am - [facility] Saundra Bautista NEstuardoPEstuardoI10 Essential (primary) hypertensionNew Medication:Hydrochlorothiazide 25 mg - 1 by mouth every day Functional Status Description No Information Available Mental Status Description No Information Available Referrals Description No Information Available
--- OUTSIDE RECORDS SUMMARY | 2019-05-23 15:29 | XMS REPORT | Summary of Care ---
:1945 Author Organization [facility] Address [address] [place] [address] Care Team Providers Name Role Phone Saundra Bautista NP Primary Care Provider Reason for Referral Refer to Department Only (Routine) Status Reason Specialty Diagnoses / Referred By Referred To Procedures Contact Contact Pending Review Physical Therapy Diagnoses Rotator cuff arthropathy, right Chyna Shirley, RPA-C [address] [facility] [place] [address] [place] [address] Reason for Visit Reason Comments New Patient Right shoulder pain. Patient had left shoulder surgery in November and thinks that she is overusing her right shoulder, causing her pain with radiation to the bicep. No known injury. Looking for a possible cortisone injection. Encounter Details Date Type Department Care Team Description 04/17/2019 Office Visit [facility] - Chyna Shirley, Rotator cuff [place] RPA-C arthropathy, right [address] [facility] [address] [facility] (Primary Dx) [address] [facility] [address] [place] [address] [phone] Allergies No Known Allergiesdocumented as of this encounter (statuses as of 04/17/2019) Medications Medication Sig Dispensed Refills Start Date End Date Status acetaminophen Take 2 Tabs 0 Active (TYLENOL) 500 MG by mouth Oral Tab EVERY SIX HOURS NEEDED for Pain. levothyroxine Take 1 Tab 0 Active (SYNTHROID) 175 MCG by mouth Oral Tab BEFORE BREAKFAST. Only takes 5 days /week;skips Mon and Fri ATORVASTATIN Take 1 Tab 0 Active CALCIUM PO by mouth DAILY. Gabapentin 600 MG Take 400 mg 0 Active Oral Tab by mouth FOUR TIMES DAILY. meloxicam (MOBIC) Take 7.5 mg 0 Active 7.5 MG Oral Tab by mouth TWICE DAILY. tramadol (ULTRAM) Take 50 mg 0 Active 50 MG Oral Tab by mouth FOUR TIMES DAILY. Diclofenac Sodium [address] onto 0 Active % Transdermal Gel skin. Losartan Potassium Take 100 mg 0 Active 100 MG Oral Tab by mouth DAILY. OXYcodone-acetamino Take 1 Tab 40 Tab 0 12/01/2018 Discontinued phen (PERCOCET) by mouth 9 (Patient stopped 5-325 MG Oral Tab EVERY FOUR the medication) HOURS NEEDED (pain). Max Daily Amount: 6 Tabs. Hospital, Clinic, or Other Ordered Dose Route Frequency Start Date End Date Status Facility Administered Medication methylPREDNISolone acetate 80 mg IX NOW 04/17/2019 04/17/2019 Ended (DEPO-MEDROL) injection 80 MG/MLIndications: Rotator cuff arthropathy, right documented as of this encounter (statuses as of 04/17/2019) Active Problems Problem Noted Date Chronic left shoulder pain 11/01/2018 Overview: Added automatically from request for surgery [id number] Bursitis of right hip 09/23/2015 Displacement of lumbar intervertebral disc without myelopathy 09/11/2014 Hip pain, bilateral 04/22/2014 S/P complete repair of rotator cuff 11/25/2010 Pain in joint, shoulder region 08/04/2010 Osteoarthrosis, unspecified whether generalized or localized, shoulder 2010 region documented as of this encounter (statuses as of 04/17/2019) Immunizations Name Administration Dates Next Due Celestone Soluspan(12mg) 08/04/2009, 07/01/2009 Depo Medrol (40mg) 04/22/2014 Depo Medrol (80mg) 06/09/2016, 05/14/2016, 09/23/2015 documented as of this encounter Social History Tobacco Use Types Packs/Day Years Used Date Never Smoker Smokeless Tobacco: Never Used Alcohol Use Drinks/Week oz/Week Comments Yes rare Sex Assigned at Date Recorded Not on file Job Start Date Occupation Industry Not on file Not on file Not on file Travel History Travel Start Travel End No recent travel history available. documented as of this encounter Last Filed Vital Signs Vital Sign Reading Time Taken Comments Blood Pressure 161/90 04/17/2019 3:22 PM EST Pulse 72 04/17/2019 3:22 PM EST Temperature - - Respiratory Rate - - Oxygen Saturation - - Inhaled Oxygen Concentration - - Weight 52.2 kg (115 lb) 04/17/2019 3:22 PM EST Height 152.4 cm (5') 04/17/2019 3:22 PM EST Body Mass Index 22.46 04/17/2019 3:22 PM EST documented in this encounter Progress Notes Chyna Shirley RPA-C - 04/17/2019 3:30 PM EST PATIENT: Karina Fitzpatrick : 1945 DATE OF SERVICE: 04/17/2019 REFERRING PRACTITIONER: Self-Referred PRIMARY CARE PROVIDER: Saundra Bautista CHIEF COMPLAINT: Chief Complaint Patient presents with New Patient Right shoulder pain. Patient had left shoulder surgery in November and thinks that she is overusing her right shoulder, causing her pain with radiation to the bicep. No known injury. Looking for a possible cortisone injection. HISTORY OF PRESENT ILLNESS: Karina Fitzpatrick is a 74-y.o. female who presents for a new visit. The patient presents with right shoulder pain. Recently had surgery by Dr. Leal on the left shoulder. Now presents for right shoulder pain . Had a rotator cuff repair about [address] Casanova. States no problems until recently. Had the left shuolder surgery so she has been using the rightmore. Now having pain With use. Past Medical History: Diagnosis Date High blood pressure Hypothyroidism Kidney stone Migraine Shoulder pain 2009 right tendonitis Past Surgical History: Procedure Laterality Date ARTHROSCOPY, SHOULDER ACROMIOPLASTY, DISTAL CLAVICLE Left 12/01/2018 Procedure: LEFT SHOULDER ARTHROSCOPY ROTATOR CUFF REPAIR SUBACROMIAL DECOMRESSION BICEPS TENOTOMY,SUPEROR CAPSULAR RECONSTRUCTION; Surgeon: Rey Leal DO; Location: [facility] MAIN OR AR FOOT/TOES SURGERY PROC UNLISTED AR SHOULDER SURG PROC UNLISTED right Family History Problem Relation Age of Onset Heart Disease Mother Cancer Father lung Heart Disease Paternal Grandfather Anesth Problems No family history Arthritis No family history Clotting Disorder No family history Diabetes No family history Hypertension No family history Kidney Disease No family history Thyroid Disease No family history Current Outpatient Medications Medication Sig acetaminophen (TYLENOL) 500 MG Oral Tab Take 2 Tabs by mouth EVERY SIX HOURS NEEDED for Pain. ATORVASTATIN CALCIUM PO Take 1 Tab by mouth DAILY. Diclofenac Sodium 1 % Transdermal Gel Place onto skin. Gabapentin 600 MG Oral Tab Take 400 mg by mouth FOUR TIMES DAILY. levothyroxine (SYNTHROID) 175 MCG Oral Tab Take 1 Tab by mouth BEFORE BREAKFAST. Only takes 5days /week;skips Mon and Fri Losartan Potassium 100 MG Oral Tab Take 100 mg by mouth DAILY. meloxicam (MOBIC) 7.5 MG Oral Tab Take 7.5 mg by mouth TWICE DAILY. tramadol (ULTRAM) 50 MG Oral Tab Take 50 mg by mouth FOUR TIMES DAILY. No current facility-administered medications for this visit. No Known Allergies Social History Socioeconomic History Marital status: Spouse name: Not on file Number of children: Not on file Years of education: Not on file Highest education level: Not on file Occupational History Not on file Social Needs Financial resource strain: Not on file Food insecurity: Worry: Not on file Inability: Not on file Transportation needs: Medical: Not on file Non-medical: Not on file Tobacco Use Smoking status: Never Smoker Smokeless tobacco: Never Used Substance and Sexual Activity Alcohol use: Yes Comment: rare Drug use: No Sexual activity: Not on file Lifestyle Physical activity: Days per week: Not on file Minutes per session: Not on file Stress: Not on file Relationships Social connections: Talks on phone: Not on file Gets together: Not on file Attends synagogue service: Not on file Active member of club or organization: Not on file Attends meetings of clubs or organizations: Not on file Relationship status: Not on file Intimate partner violence: Fear of current or ex partner: Not on file Emotionally abused: Not on file Physically abused: Not on file Forced sexual activity: Not on file Other Topics Concern Not on file Social History Narrative Employment [employer] Marital Status Children 3 Family history is noncontributory. REVIEW OF SYSTEMS: Review of systems intake completed by clinical staff. I have reviewed and agree with their documentation. PHYSICAL EXAMINATION: VITALS: BP 161/90 | Pulse 72 | Ht 5' (1.524 m) | Wt 115 lb (52.2 kg) | BMI 22.46 kg/m Bodymass index is 22.46 kg/m.. Handed: right General: pleasant, alert and oriented x 3, no apparent distress Patient was examined with the shoulder exposed. There is no asymmetry noted between between right and left shoulders. There is no evidence of skin blebs, discoloration, abrasions, or scars. No evidenceof anterior, posterior or lateral deltoid atrophy bilaterally. There is not evidence of tenderness on palpation of the anterior inferior, or anterior lateral acromion. C-spine exam: The patient has full range of motion of the cervical spine. The patient has a Negative Spurlings sign.(neck extension and lateral rotation to symptomatic side accompanied by pain on axial loading of the c-spine) Range of motion: Right upper extremity forward elevation 180 Left upper extremity forward elevation 180 Right upper extremity abduction 150 Left upper extremity - abduction 180 Specific Tests: Right upper extremity Positive modified Jobes test (Shoulder abduction to 90 degrees, 30 degrees forward flexion with right thumb down compared to left upper extremity, to evaluate supraspinatus) Negative weakness in external rotation against resistance, testing the infraspinatus and teres minor. bilaterally. Negative weakness in internal rotation against resistance , testing the subscapularis with respect to the bilaterally upper extremity. Positive lift off test, evaluating the lower portion of the subscapularis with respect to the right upper extremity. negative belly press Bilateral Nv intact to the rightRight upper extremity. Elbow and wrist motion are full and pain free of the Right upper extremity. Xray's reviewed show : Significant cephalad migration of the humeral head. Small inferior osteophyte humeral head. IMPRESSION: ICD-9-CM ICD-10-CM 1. Rotator cuff arthropathy, right 716.81 M12.811 REFER TO PHYSICAL THERAPY / REHAB INJECTION, JOINT SHOUDLER HIP KNEE OR [place] methylPREDNISolone acetate (DEPO-MEDROL) injection 80 MG/ML PLAN:The risks and benefits of my recommendations, as well as other treatment options along with their benefits, risks, and failure rates were discussed with the patient today. Discussed most likely re tear of the rotator cuff. She is not interested in surgery at this time. She would like to try an injection. The patient was advised of the material risks and benefits of a intraarticular depomedrol injection and verbal informed consent was obtained. The skin was prepped with an betadine sponge and the right Shoulder posterior approach was injected with 80 mg of Depo-medrol in 2cc of 1% plain lidocaine and 1cc of 0.5% marcaine. She tolerated the injection well with no associated complications.A band aid was applied to the injection site. Possible side effects were discussed as was the use of ice and over the counter Tylenol or ibuprofen for post injection discomfort. she was given the postinjection sheet. Also given a script for physical therapy. All questions were answered. Follow up: 2-[address] Casanova . Author: ARTIE Schmidt 04/17/2019 15:41 documented in this encounter Plan of Treatment Date Type Specialty Care Team Description 06/27/2019 Office Visit Orthopedics Grayson Humphries NP [address] [address] 07/11/2019 Office Visit Orthopedics Scott Casanova MD [address] [address] Name Type Priority Associated Diagnoses Order Schedule INJECTION, JOINT Procedures Routine Rotator cuff Ordered: 04/17/2019 SHOUDLER HIP KNEE OR arthropathy, right [place] Name Type Priority Associated Diagnoses Order Schedule REFER TO PHYSICAL Referral Routine Rotator cuff 99 Occurrences starting THERAPY / REHAB arthropathy, right 04/17/2019 until 04/17/2020 Health Maintenance Due Date Last Done Comments MEDICARE ANNUAL WELLNESS VISIT 1945 DEPRESSION SCREENING 1959 HIV SCREENING 1962 LIPID DISORDER SCREENING 1965 HEPATITIS C SCREENING 1987 MAMMOGRAM (SCREENING) 1987 Colonoscopy 1997 ZOSTER IMMUNIZATION SERIES (1 1997 of 2) OSTEOPOROSIS SCREENING 01/17/2012 PNEUMOCOCCAL 65+YRS (1 of 2 - 01/17/2012 PCV13) INFLUENZA VACCINE (#1) 2019 FALL RISK ASSESSMENT 01/17/2020 2019, 2019 HPV IMMUNIZATION SERIES Aged Out No longer eligible based on patient's age to complete this topic MENINGOCOCCAL VACCINE IMM Aged Out No longer eligible based on patient's age to complete this topic documented as of this encounter Implants Implanted Type Area Haulage Engine Operator Device Shelf Model / Identifier Expiration Serial / Date Lot Alexa 3.5mm - [id number] Right: ARTHREX [id number] / Implanted: Qty: 2 on 11/10/[address] [facility] Shoulder / [id number] Healix Ti [place] Right: DEPUY [id number] / Implanted: Qty: 1 on 11/10/[address] [facility] Shoulder / [id number] Labral Tape - White/Black - [id number] Left: ARTHREX [id number] / Implanted: Qty: 2 on 12/01/2018 by Rey Leal DO at [facility] Shoulder / Suturetak [place] 3.0 - [id number] Left: ARTHREX 06/22/2020 [id number] / Implanted: Qty: 1 on 12/01/2018 by Rey Leal DO at [facility] Shoulder / [id number] Speedbridge - [id number] Left: ARTHREX 08/20/2020 [id number] / Implanted: Qty: 1 on 12/01/2018 by Rey Leal DO at [facility] Shoulder / [id number] Suture [place] S-Rafael Knotless - [id number] Left: ARTHREX 04/21/2020 AR- [id number] / Implanted: Qty: 1 on 12/01/2018 by Rey Leal DO at [facility] Shoulder / [id number] Suture [place] S-Rafael Knotless - [id number] Left: ARTHREX 07/21/2019 AR- 1938BC / Implanted: Qty: 1 on 12/01/2018 by Rey Leal DO at [facility] Shoulder / [id number] Decellularized Dermis Left: ARTHREX 12/13/2020 [id number] / Implanted: Qty: 1 on 12/01/2018 by Rey Leal DO at [facility] Shoulder / [id number] Description:[facility] Venuu [place] 3.5mm - [id number] Left: Shoulder ARTHREX 11/19/2020 AR- 6PS / Implanted: Qty: 1 on 12/01/2018 by Rey Leal DO at [facility] / [id number] Push[place] 3.5mm - [id number] Left: Shoulder ARTHREX 11/19/2020 AR- 1926PS / Implanted: Qty: 1 on 12/01/2018 by Rey Leal DO at [facility] / [id number] documented as of this encounter Results Not on filedocumented in this encounter Visit Diagnoses Diagnosis Rotator cuff arthropathy, right - Primary documented in this encounter Administered Medications Medication Order MAR Action Action Date Dose Rate Site methylPREDNISolone acetate Given 04/17/2019 3:36 80 mg Shoulder - Right (DEPO-MEDROL) injection 80 PM EST MG/ML 80 mg, Intra-articular, NOW, 1 dose, 04/17/19 at 1540 documented in this encounter Insurance Payer Benefit Plan / Subscriber ID Effective Dates Phone Address Type Group [employer] xxxxxxxxxxxx 2016-Present [employer] (Home) [address] [id number] ([place]) [place] [address] documented as of this encounter"
--- OUTSIDE RECORDS SUMMARY | 2019-05-23 15:29 | XMS REPORT | Summary of Care ---
:1945 Author Organization [facility] Address [address] [facility] [place] [address] Care Team Providers Name Role Phone Saundra Bautista NP Primary Care Provider Reason for Visit Reason Comments Follow Up LSS 12/01/18, ROM doing good, Still going to PT. Encounter Details Date Type Department Care Team Description 03/28/2019 Office Visit [facility] Kristel, S/P arthroscopy of left shoulder (Primary Dx); 1 Eleonora Galicia NP Complete tear of left rotator cuff, unspecified whether traumatic; [place] [id number] 1 Eleonora Monroy S/Mindi rotator cuff repair [phone] [facility] [place] [address] Allergies No Known Allergiesdocumented as of this encounter (statuses as of 03/28/2019) Medications Medication Sig Dispensed Refills Start Date End Date Status acetaminophen (TYLENOL) Take 2 Tabs by 0 Active 500 MG Oral Tab mouth EVERY SIX HOURS NEEDED for Pain. levothyroxine Take 1 Tab by 0 Active (SYNTHROID) 175 MCG Oral mouth BEFORE Tab BREAKFAST. Only takes 5 days /week;skips Mon and Fri ATORVASTATIN CALCIUM PO Take 1 Tab by 0 Active mouth DAILY. Gabapentin 600 MG Oral Take 400 mg by 0 Active Tab mouth FOUR TIMES DAILY. meloxicam (MOBIC) 7.5 MG Take 7.5 mg by 0 Active Oral Tab mouth TWICE DAILY. tramadol (ULTRAM) 50 MG Take 50 mg by 0 Active Oral Tab mouth FOUR TIMES DAILY. Diclofenac Sodium 1 % Place onto 0 Active Transdermal Gel skin. Losartan Potassium 100 Take 100 mg by 0 Active MG Oral Tab mouth DAILY. OXYcodone-acetaminophen Take 1 Tab by 40 Tab 0 12/01/2018 Active (PERCOCET) 5-325 MG Oral mouth EVERY FOUR Tab HOURS NEEDED (pain). Max Daily Amount: 6 Tabs. documented as of this encounter (statuses as of 03/28/2019) Active Problems Problem Noted Date Chronic left shoulder pain 11/01/2018 Overview: Added automatically from request for surgery [id number] Bursitis of right hip 09/23/2015 Displacement of lumbar intervertebral disc without myelopathy 09/11/2014 Hip pain, bilateral 04/22/2014 S/P complete repair of rotator cuff 11/25/2010 Pain in joint, shoulder region 08/04/2010 Osteoarthrosis, unspecified whether generalized or localized, shoulder 2010 region documented as of this encounter (statuses as of 03/28/2019) Immunizations Name Administration Dates Next Due Celestone [...] Sign Reading Time Taken Comments Blood Pressure 122/64 03/28/2019 9:46 AM EST Pulse - - Temperature - - Respiratory Rate - - Oxygen Saturation - - Inhaled Oxygen Concentration - - Weight 52.2 kg (115 lb) 03/28/2019 9:46 AM EST Height 152.4 cm (5') 03/28/2019 9:46 AM EST Body Mass Index 22.46 03/28/2019 9:46 AM EST documented in this encounter Progress Notes Grayson Humphries NP - 03/28/2019 9:45 AM EST Name: Karina Fitzpatrick : 1945 Date of Service: 03/28/2019 Chief Complaint Patient presents with Follow Up LSS 12/01/18, ROM doing good, Still going to PT. SUBJECTIVE: Karina Fitzpatrick is a 74-y.o. female who is approximately 3.5 months status-post left shoulder arthroscopic superior capsular reconstruction and biceps tenotomy. The patient reports she is doing very well and has no significant pain in the left shoulder. She has not been needing pain medications routinely , occasionally takes Tylenol with good relief. She continues with physical therapy and a therapeutic home exercise program. She reports she has been focusing on strengthening. She does not have fullactive range of motion, but has maintained full passive motion and has functional use of the left arm including full range behind her back. She reports she is able to do all activities of daily livingwithout difficulty or pain. Patient denies numbness, tingling, accident. Denies fevers, chills, constitutional symptoms. Past Medical History: Diagnosis Date High blood pressure Hypothyroidism Kidney stone Migraine Shoulder pain 2010 right tendonitis Past Surgical History: Procedure Laterality Date ARTHROSCOPY, SHOULDER ACROMIOPLASTY, DISTAL CLAVICLE Left 12/01/2018 Procedure: LEFT SHOULDER ARTHROSCOPY ROTATOR CUFF REPAIR SUBACROMIAL DECOMRESSION BICEPS TENOTOMY,SUPEROR CAPSULAR RECONSTRUCTION; Surgeon: Rey Leal DO; Location: [facility] MAIN OR UT FOOT/TOES SURGERY PROC UNLISTED UT SHOULDER SURG PROC UNLISTED Family History Problem Relation Age of Onset Heart Disease Mother Cancer Father lung Heart Disease Paternal Grandfather Anesth Problems No family history Arthritis No family history Clotting Disorder No family history Diabetes No family history Hypertension No family history Kidney Disease No family history Thyroid Disease No family history Social History Socioeconomic History Marital status: Spouse [...] file Gets together: Not on file Attends spiritism service: Not on file Active member of [...] Not on file Social History Narrative Employment [employer] Marital Status Children 3 Family history is noncontributory. No Known Allergies Current Outpatient Medications Medication Sig acetaminophen (TYLENOL) [...] Take 7.5 mg by mouth TWICE DAILY. OXYcodone-acetaminophen (PERCOCET) 5-325 MG Oral Tab Take 1 Tab by mouth EVERY FOUR HOURS ASNEEDED (pain). Max Daily Amount: 6 Tabs. tramadol (ULTRAM) 50 MG Oral Tab Take 50 mg by mouth FOUR TIMES DAILY. No current facility-administered medications for this visit. Review of Systems: Negative except as noted in HPI. OBJECTIVE: Physical Exam: Karina Fitzpatrick is a 74-y.o. female in no acute distress, conscious alert and oriented times three. BP 122/64 Ht 5' (1.524 m) Wt 115 lb (52.2 kg) BMI 22.46 kg/m2 Left Shoulder Arthroscopy scars well-healed and unremarkable. There is no erythema, warmth, or rubor. No swelling. No ecchymosis. Passive range of motion is 170 degrees forward flexion, 170 degrees abduction, external rotation at the side is 70 degrees. At 90 degrees abduction, external rotation is 80 degrees, internal rotation is 90 degrees. Active internal rotation behind the back is to T7. She is able to reach across her body and place her left hand on her contralateral shoulder. Active forward flexion limited to approximately 70 degrees, 60 degrees of abduction. Good toleranceto eccentric motion when assisted to full flexion or abduction. Full range of motion of the left elbow, wrist, and hand. No obvious deformity. Overall alignment is normal. Distal pulses and sensation intact. ASSESSMENT: ICD-9-CM ICD-10-CM 1. S/P arthroscopy of left shoulder V45.89 Z98.890 2. Complete tear of left rotator cuff, unspecified whether traumatic M75.122 3. S/P rotator cuff repair V45.89 Z98.890 PLAN: Reviewed findings with the patient and discussed plan of care now approximately 3.5 months status-post left shoulder arthroscopic superior capsular reconstruction and biceps tenotomy. The patient is doing well with continued pain relief and good progress with her range of motion. Continue PT, HEP for AROM and strengthening. Reviewed with patient that she is unlikely to get much active motion or strength above shoulder level. She verbalized understanding of this but is pleased with her progress so far. Encouraged to continue strengthening exercises. We will have her follow-up in 3 months to evaluate her progress with rehabilitation, or sooner if any concerns arise. In the interim, she was advised to continue activity modification based on her level of pain, and use Rest, Ice and Over the counter NSAIDS as needed for discomfort. Risks and benefitsof the above recommendations were discussed with the patient today; all questions were answered. Author: Grayson Humphries NP documented in this encounter Plan of Treatment Date Type Specialty Care Team Description 06/27/2019 Office Visit Orthopedics Grayson Humphries NP 1 [place] [address] [phone] Health Maintenance Due Date Last Done Comments MEDICARE ANNUAL WELLNESS VISIT 1945 DEPRESSION SCREENING 1959 HIV SCREENING 1962 LIPID DISORDER SCREENING 1965 HEPATITIS C SCREENING 1987 MAMMOGRAM (SCREENING) 1987 COLONOSCOPY SCREENING 1997 ZOSTER IMMUNIZATION SERIES (1 1997 of [...] of this encounter Implants Implanted Type Area Floor Sander Device Shelf Model / Identifier Expiration Serial / Date Lot Pushlock 3.5mm - [id number] Right: ARTHREX AR-6PS / Implanted: Qty: 2 on 11/10/2010 at [facility] Shoulder / [id number] Healix Ti [place]se[place] Right: DEPUY [id number] / Implanted: Qty: 1 on 11/10/2010 at [facility] Shoulder / [id number] Labral Tape - White/Black - [id number] Left: ARTHREX [id number] / Implanted: Qty: 2 on 12/01/2018 by Rey Leal DO at [facility] Shoulder / Suturetak [place]se[place] 3.0 - [id number] Left: ARTHREX 06/22/2020 [id number] / Implanted: Qty: 1 on 12/01/2018 by Rey Leal DO at [facility] Shoulder / [id number] Speedbridge - [id number] Left: ARTHREX 08/20/2020 [id number] / Implanted: Qty: 1 on 12/01/2018 by Rey Leal DO at [facility] Shoulder / [id number] Suture Osseo S-Rafael Knotless - [id number] Left: ARTHREX 04/21/2020 AR- [id number] / Implanted: Qty: 1 on 12/01/2018 by Rey Leal DO at [facility] Shoulder / [id number] Suture [place]se[place] S-Rafael Knotless - [id number] Left: ARTHREX 07/21/2019 AR- 1938BC / Implanted: Qty: 1 on 12/01/2018 by Rey Leal DO at [facility] Shoulder / [id number] Decellularized Dermis Left: ARTHREX 12/13/2020 [id number] / Implanted: Qty: 1 on 12/01/2018 by Rey Leal DO at [facility] Shoulder / [id number] Description:[facility] [id number] [id number] Pushlock 3.5mm - [id number] Left: Shoulder ARTHREX 11/19/2020 AR- 1926PS / Implanted: Qty: 1 on 12/01/2018 by Rey Leal DO at [facility] / [id number] Pushlock 3.5mm - [id number] Left: Shoulder ARTHREX 11/19/2020 AR- 1926PS / Implanted: Qty: 1 on 12/01/2018 by Rey Leal DO at [facility] / [id number] documented as of this encounter Results Not on filedocumented in this encounter Visit Diagnoses Diagnosis S/P arthroscopy of left shoulder - Primary Complete tear of left rotator cuff, unspecified whether traumatic S/P rotator cuff repair Other postprocedural status documented in this encounter Insurance Payer Benefit Plan / Subscriber ID Effective Dates Phone Address Type Group [employer] xxxxxxxxxxxx 2016-Present [employer] (Home) [address] [phone] [id number] (Work) [place] [id number] documented as of this encounter
[2019-05-23 18:37] LABS: Urine Appearance Clear; Urine Bilirubin Negative (Negative); Urine Blood Negative (Negative); Urine Color Yellow; Urine Glucose Negative (Negative); Urine Ketones 2+ (Negative); Urine Nitrite Negative (Negative); Urine Protein Negative (Negative); Urine Specific Gravity 1.014 (1.010-1.030); Urine Urobilinogen Negative (Negative)
[2019-05-23 20:17] LABS: Troponin I 0.02 ng/mL (<0.03)
[2019-05-23] MEDS ORDERED: NS 0.9% 1000 ML** 1,000 ML IV SCH (20:30)
[2019-05-23 20:54] LABS: Magnesium 1.9 mg/dL (1.9-2.7)
[2019-05-23] MEDS ORDERED: Enoxaparin(*) 40 MG/0.4 ML SYR SUBCUT SCH (21:00)
[2019-05-23] MEDS: D5NS 0.9% 1000 ML BAG* 1,000 ML IV SCH (22:19)
[2019-05-23] MEDS: Acetaminophen TAB* 325 MG PO PRN (22:25)
[2019-05-23] MEDS: amLODIPine TAB* 5 MG PO SCH (22:26)
--- NOTE | 2019-05-23 23:07 | HP ---
CC: Saundra Bautista NP * HISTORY AND PHYSICAL: DATE OF ADMISSION: 05/23/19 PROVIDER: Karey Yu NP PRIMARY CARE PROVIDER: Saundra Bautista NP. ATTENDING PHYSICIAN WHILE IN THE HOSPITAL: Dr. Jose Mendoza * (dictated by Karey Yu NP). CHIEF COMPLAINT: Diarrhea. HISTORY OF PRESENT ILLNESS: Ms. Fitzpatrick is a 74-year-old female with a past medical history significant for hypothyroid, hypertension, hyperlipidemia and chronic pain, who presented to the emergency room with complaints of diarrhea and nausea since taking a new medication hydrochlorothiazide yesterday morning. The patient reports that Tuesday she was feeling in her normal state of health. She went to bed, she woke up Tuesday morning again feeling in her normal state of health. She does report that shortly after taking her new medication hydrochlorothiazide, her stomach felt off and she began to have chills and cold sweats. She reports that she has not eaten anything since Tuesday evening due to the nausea and diarrhea that she has been experiencing today. The patient denies any fevers. She does report chills and cold sweats, does report decreased appetite. Denies any chest pain, edema, cough, hemoptysis, or shortness of breath. She does report nausea, denies any vomiting. She does report diarrhea, no abdominal pain. She denies any black or tarry stools. She denies any vomiting of blood, denies any pain with urination, urinary frequency or urgency. She denies any weakness. No dysphagia, arthralgias, myalgias, rashes, lesions or open sores. While in the emergency room, the patient had routine lab work drawn and was given 2 L of normal saline. The patient reports that she has had a total of 5 episodes of diarrhea since being in the emergency room, again denies any black or tarry stools or blood in the stool. Due to her continued diarrhea and mild dehydration, Hospital Medicine was asked to see and evaluate her for admission. PAST MEDICAL HISTORY: Significant for: 1. Hypothyroid. 2. Hypertension. 3. Hyperlipidemia. 4. Chronic pain. PAST SURGICAL HISTORY: 1. Back surgery x2. 2. Neck surgery x2. 3. Shoulder surgery x2. HOME MEDICATIONS: Include: 1. Levothyroxine 75 mcg p.o. daily. 2. The patient reports that she takes a blood pressure medication, believes it is losartan but is unsure. 3. She takes atorvastatin 20 mg p.o. daily. 4. Gabapentin 400 mg p.o. t.i.d. 5. Vitamin D 2000 units p.o. daily. 6. Tramadol 50 mg four times a day as needed for pain. We will need to obtain a medication list from her primary care provider to confirm medications and dosages. ALLERGIES: No known drug allergies. FAMILY HISTORY: Mother with a history of [place], mother is currently alive and well at the age of 91. No reported history of diabetes within the family. Father with lung cancer, at age of 81. Sister with breast cancer. SOCIAL HISTORY: She denies any tobacco, alcohol or illicit drug use. She is , she lives alone, She ambulates independently without assisted devices. She is a full code. Surrogate decision-maker in the event she is unable to make her own decisions is her son. REVIEW OF SYSTEMS: A 14-point review of systems was completed. All pertinent positives are mentioned in the HPI. PHYSICAL EXAMINATION GENERAL: At this time, Ms. Fitzpatrick is alert and oriented, resting on a stretcher in the emergency room. Her skin is pale. She is in no acute distress. VITAL SIGNS: Blood pressure 156/77, heart rate 85, respirations are 13, O2 saturation 98%, temperature was 98.7. HEENT: Head is atraumatic, normocephalic. Eyes: EOMs are intact. Oral mucosa is dry. Sclerae are pale. NECK: Supple. LUNGS: Clear to auscultation bilaterally. No wheezes, rales or rhonchi. HEART: S1 and S2. Regular rate and rhythm. No murmurs, rubs or gallops. ABDOMEN: Soft and nontender. Bowel sounds are active x4. EXTREMITIES: She is able to move all 4 extremities. There is no clubbing or cyanosis. NEUROLOGIC: She is awake, alert, oriented x3. Speech is clear. Thought process is intact. There are no gross focal deficits. SKIN: Intact. DIAGNOSTIC STUDIES/LAB DATA: WBCs are 6.6, RBCs 5.06, hemoglobin 15.9, hematocrit 47, platelet count is 312. Sodium 139, potassium 3.9, chloride 100, carbon dioxide 22, anion gap 17, BUN was 22, creatinine 1.05, glucose 105, lactic acid 1.7, calcium 10.7, magnesium is currently pending, ASTs were 26, ALTs were 28, alkaline phosphatase is 94, troponin was negative x3. Urine was within normal limits with the exception of ketones of 2+. She had a normal electrocardiogram which showed sinus tachycardia at a rate of 101. ASSESSMENT AND PLAN: Ms. Fitzpatrick is a 74-year-old female with past medical history significant for hypothyroid, hypertension, hyperlipidemia and chronic pain, who presented to the emergency room with complaints of diarrhea that started yesterday morning after taking hydrochlorothiazide. She will be admitted under observation for: 1. Diarrhea. I suspect this could be related to viral illness versus hydrochlorothiazide. The patient was given 2 L of normal saline in the emergency room. We will continue her on normal saline at 1000 cc per hour and monitor her overnight. I will send stools for culture; her C. diff is currently pending. We will repeat a CBC and BMP in the a.m. 2. Hypertension. We will hold her medications at this time and resume when current medication list is available. 3. Hypothyroid. I will continue her on her levothyroxine as previously prescribed at 75 mcg. 4. Hyperlipidemia. We will hold her atorvastatin this evening. Resume when she is able to tolerate a diet. 5. FEN. She can have a clear liquid diet. 6. Code status. She is a full code. 7. DVT prophylaxis. I will place her on Lovenox subcu. TIME SPENT: Time spent on this admission was 60 minutes, greater than half that time was spent at the bedside reviewing the events leading thus far to her hospitalization, performing physical exam, and reviewing my plan of care. I have discussed this with my attending, Dr. Jose Mendoza; he is in agreement with my plan. KAREY YU, SALES CONSULTANT [id number]/[facility] #: [id number] KEVIN
[2019-05-24 05:59] LABS: ABS Eosinophils 0.1 10^3/ul (0-0.6); ABS Lymphocytes 1.5 10^3/ul (1.0-4.8); ABS Monocytes 0.8 10^3/ul (0-0.8); ABS Neutrophils 3.3 10^3/ul (1.5-7.7); Hematocrit 37 % (35-47); Hemoglobin 12.5 g/dL (12.0-16.0); Lymphocyte % 25.9 %; Mean Corpuscular HGB Conc 34 g/dL (31-36); Mean Corpuscular Hemoglobin 32 pg (27-31); Mean Corpuscular Volume 94 fL (80-97); Mean Platelet Volume 6.8 fL (7.4-10.4); Nucleated Red Blood Cells % 0.1; Platelet Count 218 10^3/uL (150-450); Red Blood Count 3.93 10^6 /uL (3.70-4.87); Red Cell Distribution Width 13 % (10-15); White Blood Count 5.6 10^3/uL (3.5-10.8)
[2019-05-24] MEDS ORDERED: Levothyroxine TAB* 75 MCG TAB PO SCH (06:00)
[2019-05-24 06:17] LABS: BUN/Creatinine Ratio 22.2 (8-20); Calcium 8.4 mg/dL (8.6-10.3); EGFR African American 96.3 (>60); EGFR Non-African American 79.6 (>60); Potassium 3.4 mmol/L (3.5-5.0)
[2019-05-24] MEDS ORDERED: Potassium Chlor TAB* 20 MEQ TAB.ER PO ONE (07:32)
--- NOTE | 2019-05-24 07:43 | PN ---
Subjective Date of Service: 05/24/19 Interval History: Admitted yesterday for n/v/diarrhea after starting HCTZ. No acute events overnight. K low this AM. Advancing diet from clears to regular, as patient tolerated jello and water for breakfast. Objective Active Medications: Acetaminophen (Tylenol Tab*) 650 mg PO Q4H PRN PRN Reason: MILD PAIN or TEMP > 100.4 Last Admin: 05/23/19 22:25 Dose: 650 mg Amlodipine Besylate (Norvasc Tab*) 5 mg PO DAILY [facility] Last Admin: 05/23/19 22:26 Dose: 5 mg Enoxaparin Sodium (Lovenox(*)) 40 mg SUBCUT Q24H [facility] Last Admin: 05/23/19 22:26 Dose: 40 mg Dextrose/Sodium Chloride (D5ns 0.9% 1000 Ml Bag*) 1,000 mls @ 100 mls/hr IV PER RATE [facility] Stop: 05/25/19 06:59 Last Admin: 05/23/19 22:19 Dose: 100 mls/hr Levothyroxine Sodium (Synthroid Tab*) 75 mcg PO QAM@0600 [facility] Last Admin: 05/24/19 05:52 Dose: 75 mcg Potassium Chloride (Klor Con Er Tab*) 40 meq PO ONCE ONE Stop: 05/24/19 07:33 Vital Signs - 8 hr 05/24/19 03:15 Temperature 98.7 F Pulse Rate 95 Respiratory 16 Rate Blood Pressure 147/69 (mmHg) O2 Sat by Pulse 100 Oximetry Oxygen Devices in Use Now: None Appearance: well appearing woman in NAD Eyes: No Scleral Icterus Ears/Nose/Mouth/Throat: Clear Oropharnyx, Mucous Membranes Moist Respiratory: Symmetrical Chest Expansion and Respiratory Effort, Clear to Auscultation Cardiovascular: NL Sounds; No Murmurs; No JVD, RRR Abdominal: NL Sounds; No Tenderness; No Distention, No Hepatosplenomegaly Extremities: No Edema Skin: No Rash or Ulcers Neurological: Alert and Oriented x 3 Result Diagrams: 05/24/19 05:43 05/24/19 05:42 Additional Lab and Data: Lab Results 05/23/19 05/23/19 05/23/19 Range/Units 14:00 14:00 14:00 WBC 6.6 (3.5-10.8) 10^3/uL RBC 5.06 H (3.70-4.87) 10^6 /uL Hgb 15.9 (12.0-16.0) g/dL Hct 47 (35-47) % MCV 93 (80-97) fL MCH 32 H (27-31) pg MCHC 34 (31-36) g/dL RDW 14 (10-15) % Plt Count 312 (150-450) 10^3/uL MPV 6.9 L (7.4-10.4) fL Neut % (Auto) 65.7 % Lymph % (Auto) 21.8 % Aurora % (Auto) 11.8 % Eos % (Auto) 0.3 % Baso % (Auto) 0.4 % Absolute Neuts (auto) 4.3 (1.5-7.7) 10^3/ul Absolute Lymphs (auto) 1.4 (1.0-4.8) 10^3/ul Absolute Monos (auto) 0.8 (0-0.8) 10^3/ul Absolute Eos (auto) 0.0 (0-0.6) 10^3/ul Absolute Basos (auto) 0.0 (0-0.2) 10^3/ul Absolute Nucleated RBC 0.0 10^3/ul Nucleated RBC % 0.2 Sodium 139 (135-145) mmol/L Potassium 3.9 (3.5-5.0) mmol/L Chloride 100 L (101-111) mmol/L Carbon Dioxide 22 (22-32) mmol/L Anion Gap 17 H (2-11) mmol/L BUN 22 (6-24) mg/dL Creatinine 1.05 H (0.51-0.95) mg/dL Est GFR ( Amer) 62.3 (>60) Est GFR (Non-Af Amer) 51.5 (>60) BUN/Creatinine Ratio 21.0 H (8-20) Glucose 105 H (70-100) mg/dL Lactic Acid 1.7 (0.5-2.0) mmol/L Calcium 10.7 H (8.6-10.3) mg/dL Total Bilirubin 0.60 (0.2-1.0) mg/dL AST 26 (13-39) U/L ALT 28 (7-52) U/L Alkaline Phosphatase 94 (34-104) U/L Troponin I 0.01 (<0.03) ng/mL Total Protein 8.1 (6.4-8.9) g/dL Albumin 4.8 (3.2-5.2) g/dL Globulin 3.3 (2-4) g/dL Albumin/Globulin Ratio 1.5 (1-3) Microbiology and Other Data: Microbiology 05/23/19 20:10 Stool Gross Appearance - Final Stool C. difficile DNA Amplification - Final 027 Presumptive NEGATIVE Toxigenic C.diff NEGATIVE Assess/Plan/Problems-Billing Assessment: - Patient Problems (1) Nausea and vomiting in adult Comment: Started after taking HCTZ, now self-resolving. - advance diet - DC IVF - likely home later today (2) Hypertension Comment: - initiated amlodipine last night, BP at goal now (3) Hypothyroid Comment: TSH 10, no known recents. No symptoms. - f/u for levothyroxine titration in clinic - recheck TSH in 6 weeks
[2019-05-24 08:25] LABS: TSH (Thyroid Stimulating Horm) 9.99 mcIU/mL (0.34-5.60)
[2019-05-24] MEDS: D5NS 0.9% 1000 ML BAG* 1,000 ML IV SCH (08:34)
[2019-05-24] MEDS: amLODIPine TAB* 5 MG PO SCH (08:34)
[2019-05-24] MEDS: Acetaminophen TAB* 325 MG PO PRN (08:41)
[2019-05-24 11:34] VITALS: BP 140/66
--- NOTE | 2019-05-24 23:08 | DS ---
CC: Saundra Bautista NP * DISCHARGE SUMMARY: DATE OF ADMISSION: 05/23/19 DATE OF DISCHARGE: 05/24/19 PRIMARY CARE PHYSICIAN: Saundra Bautista NP. PRIMARY DIAGNOSES: 1. Gastroenteritis, likely viral, possibly related to hydrochlorothiazide. 2. Hypertension. SECONDARY DIAGNOSIS: Hypothyroidism. DISCHARGE MEDICATIONS: 1. Amlodipine 5 mg at bedtime. 2. Losartan 25 mg daily. 3. Potassium chloride 10 mEq daily. 4. Levothyroxine 75 mcg daily. 5. Atorvastatin 20 mg at bedtime. 6. Gabapentin 400 mg t.i.d. 7. Tramadol 50 mg 4 times a day as needed for pain. 8. Acetaminophen 500 mg daily as needed for pain. 9. Meloxicam 7.5 mg twice a day as needed for pain. HISTORY OF PRESENT ILLNESS: Ms. Fitzpatrick is a 74-year-old woman with hypothyroidism, hypertension, hyperlipidemia, and chronic pain, who is presenting to the emergency room with complaints of diarrhea and nausea after starting hydrochlorothiazide one day prior to presentation. She reports that two days ago she was in her normal state of health, went to bed, the next morning when she woke up she still felt well but started her first dose of hydrochlorothiazide. Shortly after her stomach felt off and she began to experience chills and sweats. She reports that she had not eaten any food since the day before, so therefore was not able to start eating breakfast. She denies fevers, chest pain, edema, cough, shortness of breath. She reports nausea, chills, cold sweats, decreased appetite but no vomiting. The patient is having diarrhea but no abdominal pain. Her stools are not black, tarry or bloody. HOSPITAL COURSE: In the emergency room, the patient's routine lab work was unremarkable and she received 2 L of normal saline. She reports 5 episodes of diarrhea in the emergency room. Given persistent diarrhea and inability to tolerate p.o., hospitalist medicine was asked to admit her to observation. The patient had stool test done, which were negative for C. diff and Shiga toxins. Her hydrochlorothiazide was held and she was given gentle IV hydration. By the next morning, the patient still had an unremarkable CBC although her basic metabolic panel was notable for low potassium, so that was repleted. Of note, her TSH was mildly elevated to 10, but the patient denied symptoms of hypothyroidism and it was thought that this could possibly be in the setting of an acute illness, so the patient was educated to follow this up with her primary care physician. PERTINENT DIAGNOSTIC STUDIES: CBC, BMP notable for creatinine increased to 1.05 which resolved by morning of discharge. Lactic acid negative. LFTs and UA unremarkable. TSH 10. DISCHARGE PLAN: For optimal blood pressure control, the patient's hydrochlorothiazide was discontinued but she was initiated on amlodipine. She can continue her home losartan as before. She was educated to check her blood pressures daily and bring a log of this to her primary care physician. For hypothyroidism, the patient was educated on mildly elevated TSH. As she denied symptoms, her levothyroxine dose was not adjusted. It was thought to be possibly in the setting of acute illness, so she was asked to follow this up with her primary care physician in 6 weeks. For her diarrhea, which improved significantly throughout admission without intervention. She was educated to avoid fruit juices and milk until her diarrhea resolves. Otherwise, she should eat a healthy diet, low in processed foods and resume activity as tolerated. DISPOSITION: Home. CONDITION: Improved. TIME SPENT: Approximately 60 minutes was spent on discharge of this patient, more than half of which was spent with care coordination at bedside for interview and exam. [id number]/[facility] #: [id number] KEVIN
== END 2019-05-24 14:20 | disposition home or self-care (01) ==
LOC: ED 13:42 → MED 20:30
PROVIDERS: ADMIT Internal Medicine; ATTEND Internal Medicine
DX: A08.4 Viral intestinal infection, unspecified (principal); I10 Essential (primary) hypertension; G89.29 Other chronic pain; R42 Dizziness and giddiness; E78.5 Hyperlipidemia, unspecified; E03.9 Hypothyroidism, unspecified; Z79.899 Other long term (current) drug therapy; E86.0 Dehydration
CPT/HCPCS: 36415; 80048; 80053; 81003; 83605; 83630; 83735; 84443; 84484; 85025; 87045; 87046; 87077; 87493; 87899; 93005; 96360; 96361; 96372; 99282; A9270-GY; G0378; J1650